=== PATIENT | male | born 1950 | race Caucasian/White ===

== ENCOUNTER → 2017-12-10 08:42 | Outpatient (CLI) | payer MEDICARE, SELFPAY ==
[2017-12-10 13:22] LABS: Absolute Neutrophil Count 4.4 X10^3/uL (2.0-7.7); Basophil# 0.03 X10^3/uL; Basophil% 0.4 % (0-1); Eosinophil# 0.39 X10^3/uL; Eosinophils% 5.5 % (0-5); Hematocrit 44.3 % (40-54); Hemoglobin 14.9 g/dl (13.0-16.5); Lymphocyte % 23.9 % (19-41); Mean Corp Hgb Conc 33.6 g/gl (32-36); Mean Corpuscular Hgb 30.3 pg (27.0-32.0); Mean Platelet Vol. 11.2 fl (6.2-12.0); Monocyte# 0.59 X10^3/uL; Monocyte% 8.3 % (0-10); Neutrophil % 61.8 % (47-70); Platelet Count 242 K/mm3 (150-450); RBC Distribution Width CV 13.6 % (11.6-14.6); RBC Distribution Width SD 43.9 fl (35.1-43.9); Red Blood Count 4.92 M/mm3 (4.6-6.2); White Blood Count 7.1 K/mm3 (4.4-11.0)
[2017-12-10 13:24] LABS: POSITIVE COUNT NO; POSITIVE DIFFERENTIAL NO; POSITIVE MORPHOLOGY NO
[2017-12-10 13:47] LABS: ALB/GLOB Ratio 1.1 RATIO (0.9-2.4); AST(SGOT) 22 U/L (15-37); Alanine Aminotransfer ALT/SGPT 39 U/L (16-61); Albumin, Serum 3.9 g/dL (3.2-5.0); Alkaline Phosphatase 130 U/L (45-117); Anion Gap 10 (5-15); BUN 14 mg/dL (7-18); BUN/Creat Ratio 17.4 RATIO (10-20); Chloride 102 mmol/L (98-107); EST Glomerular Filtration Rate 102 mL/min (>60); Est Glom Filt Rate - Afr Amer 123 mL/min (>60); Globulin 3.5 g/dL (2.2-4.2); Glucose 103 mg/dL (70-110); PSA,Total - Annual Screen 4.17 ng/mL (0.00-4.00); Potassium 4.1 mmol/L (3.5-5.1); Protein, Total 7.4 g/dL (6.4-8.2); Sodium Level 138 mmol/L (136-145); Thyroid Stim Hormone (TSH) 2.35 uIU/mL (0.358-3.74)
[2017-12-11 11:55] LABS: Hep C Antibodies <0.1 s/co ratio (0.0-0.9)
== END ==
PROVIDERS: Family Provider Family Medicine Geriatric Medicine; PCP Family Medicine Geriatric Medicine; Visit Provider Family Medicine Geriatric Medicine
DX: R53.83 Other fatigue (principal); Z12.5 Encounter for screening for malignant neoplasm of prostate; Z13.89 Encounter for screening for other disorder
CPT/HCPCS: 36415; 80053; 84153; 84443; 85025; 86803; G0103

== ENCOUNTER → 2018-02-12 08:43 | Outpatient (CLI) | payer MEDICARE, SELFPAY ==
[2018-02-12 09:46] LABS: PSA,Total- Diagnostic 3.58 ng/mL (0.0-4.0)
== END ==
PROVIDERS: Family Provider Family Medicine Geriatric Medicine; PCP Family Medicine Geriatric Medicine; Visit Provider Urology
DX: R97.20 Elevated prostate specific antigen [PSA] (principal)
CPT/HCPCS: 36415; 84153

== ENCOUNTER → 2018-06-15 11:02 | Outpatient (CLI) | payer MEDICARE, SELFPAY ==
[2018-06-15 12:48] LABS: Absolute Neutrophil Count 3.6 X10^3/uL (2.0-7.7); Basophil# 0.02 X10^3/uL; Basophil% 0.3 % (0-1); Eosinophil# 0.41 X10^3/uL; Eosinophils% 6.8 % (0-5); Hematocrit 46.6 % (40-54); Hemoglobin 15.6 g/dl (13.0-16.5); Lymphocyte % 24.8 % (19-41); Mean Corp Hgb Conc 33.5 g/gl (32-36); Mean Corpuscular Hgb 29.9 pg (27.0-32.0); Mean Corpuscular Volume 89.4 fL (80-94); Monocyte# 0.49 X10^3/uL; Monocyte% 8.1 % (0-10); Neutrophil # 3.62 X10^3/uL (2.7-7.7); POSITIVE COUNT NO; POSITIVE DIFFERENTIAL NO; POSITIVE MORPHOLOGY NO; Platelet Count 207 K/mm3 (150-450); RBC Distribution Width CV 13.3 % (11.6-14.6); RBC Distribution Width SD 43.2 fl (35.1-43.9); Red Blood Count 5.21 M/mm3 (4.6-6.2)
[2018-06-15 13:09] LABS: AST(SGOT) 19 U/L (15-37); Alanine Aminotransfer ALT/SGPT 25 U/L (16-61); Albumin, Serum 3.9 g/dL (3.2-5.0); Alkaline Phosphatase 151 U/L (45-117); Anion Gap 4 (5-15); BUN 16 mg/dL (7-18); BUN/Creat Ratio 19.4 RATIO (10-20); Calcium,Total 8.7 mg/dL (8.5-10.1); Chloride 104 mmol/L (98-107); Creatinine, Serum 0.82 mg/dL (0.70-1.30); EST Glomerular Filtration Rate 99 mL/min (>60); Est Glom Filt Rate - Afr Amer 120 mL/min (>60); Globulin 3.9 g/dL (2.2-4.2); Glucose 85 mg/dL (74-106); Potassium 4.4 mmol/L (3.5-5.1); Protein, Total 7.8 g/dL (6.4-8.2); Sodium Level 138 mmol/L (136-145); Thyroid Stim Hormone (TSH) 2.11 uIU/mL (0.358-3.74)
[2018-06-16 09:49] LABS: Vitamin D,25 Hydroxy 27.1 ng/mL (29.95-100.01)
== END ==
PROVIDERS: Family Provider Family Medicine Geriatric Medicine; PCP Family Medicine Geriatric Medicine; Visit Provider Family Medicine Geriatric Medicine
DX: E55.9 Vitamin D deficiency, unspecified (principal); R53.83 Other fatigue
CPT/HCPCS: 36415; 80053; 82306; 84443; 85025

== ENCOUNTER → 2018-09-16 07:36 | Outpatient (CLI) | payer MEDICARE, SELFPAY ==
--- NOTE | 2018-09-16 07:43 | CT_ITS ---
STUDY: LOW DOSE CT LUNG CANCER SCREENING REASON FOR EXAM: Male, 67 years old. RADIATION DOSAGE (If Supplied By Facility): CTDIvol = ( 4.02 ) mGy, DLP = ( 139.94 ) mGycm TECHNIQUE: No contrast was administered. Low dose technique was utilized (average mAS-38 and kVp 120). 1.25 mm axial source images with a slice interval of 1.25-mm were reconstructed in lung windows. 2.5 mm axial source images with a slice interval of 2.5-mm were reconstructed in lung windows. 5.0 mm axial source images with a slice interval of 5.0-mm were reconstructed in soft tissue windows. Nodule measured using lung windows on PACS and/or independent workstation with automated measurement of minimum and maximum diameter. Nodule measurement reported as average diameter rounded to the nearest whole number. Growth is defined as an increase ins size of greater than 1.5 mm. COMPARISON: None. NODULES: There is hyperinflation both lungs suggesting COPD. There is mild bronchial wall thickening suggesting chronic bronchitis. There is no demonstrated pleural abnormality. Normal heart and pericardium. Normal mediastinum. Normal hilar regions. Normal unenhanced pulmonary arteries. Normal aorta arch and descending thoracic aorta. There are multi-level degenerative changes and demineralization of the thoracic spine. Multiple old compression fractures are seen in the mid and lower thoracic spine. There is no demonstrated abnormality of the visualized upper abdomen. CT/Low Dose CT Lung Screening IMPRESSION: Lung-RADS category 2. Benign findings Recommendation: Routine screening CT scan in one year. IMPORTANT NOTES FOR USE: ACR Lung-RADS Version 1.0 Assessment Categories Release Date: March 06, 2014 Category: Coded 0-4 bases on nodule(s) with highest degree of suspicion. Negative screen is defined as categories 1 and 2; a positive screen is defined as categories 3 and 4. Category 3 and 4A nodules that are unchanged on interval CT should be coded as category 2, and individuals returned to screening in 12 months. Category 4X: Category 3 or 4 nodules with additional imaging findings that increase the suspicion of lung cancer, such as spiculation, GGN that doubles in size in 1 year, enlarged lymph notes, etc. Category Modifiers: S (significant finding unrelated to lung cancer) and C (prior history of treated lung cancer) may be added to the 0-4 Lung-RADS Electronically Signed: Greg Ott MD at 6:51 EST Tel , Service support ,
--- NOTE | 2018-09-16 07:44 | US_ITS ---
PROCEDURES: ULTRASOUND AORTA REASON FOR EXAM: Male, 67 years old. Screening TECHNIQUE: Ultrasound evaluation of the aorta was performed with real-time and static cruz-scale imaging. COMPARISON: None. FINDINGS: There is obscuration of the abdominal aorta by overlying bowel gas Aorta measures: Proximal 2.2 cm. Middle 1.8 cm. Distal 1.6 cm. Aorta measure transversely: Proximal 2.1 cm. Middle 1.8 cm. Distal 1.5 cm. Neither iliac artery visualized There is no demonstrated aneurysm.. US/Aorta IMPRESSION: Normal abdominal aorta, neither iliac artery visualized. Electronically Signed: Russell Tang MD at 18:15 EST , Service support ,
== END ==
PROVIDERS: Family Provider Family Medicine Geriatric Medicine; PCP Family Medicine Geriatric Medicine; Referring Provider Family Medicine Geriatric Medicine; Visit Provider Family Medicine Geriatric Medicine
DX: I71.4 Abdominal aortic aneurysm, without rupture (principal); Z87.891 Personal history of nicotine dependence; Z12.2 Encounter for screening for malignant neoplasm of respiratory organs
CPT/HCPCS: 76775; G0297

== ENCOUNTER → 2018-12-15 14:32 | Outpatient (CLI) | payer MEDICARE, SELFPAY ==
[2018-12-15 16:54] LABS: Absolute Lymphocyte Count 1.58 X10^3/ul (0.83-4.51); Absolute Neutrophil Count 2.9 X10^3/uL (2.0-7.7); Basophil# 0.05 X10^3/uL; Basophil% 0.9 % (0-1); Eosinophil# 0.42 X10^3/uL; Eosinophils% 7.7 % (0-5); Hematocrit 49.4 % (40-54); Lymphocyte # 1.58 X10^3/ul (4.0); Lymphocyte % 28.9 % (19-41); Mean Corp Hgb Conc 32.4 g/gl (32-36); Mean Corpuscular Hgb 29.7 pg (27.0-32.0); Mean Corpuscular Volume 91.8 fL (80-94); Monocyte# 0.47 X10^3/uL; Monocyte% 8.6 % (0-10); Neutrophil # 2.94 X10^3/uL (2.7-7.7); Neutrophil % 53.7 % (47-70); Platelet Count 216 K/mm3 (150-450); RBC Distribution Width CV 13.5 % (11.6-14.6); RBC Distribution Width SD 44.7 fl (35.1-43.9); Red Blood Count 5.38 M/mm3 (4.6-6.2); Vitamin D,25 Hydroxy 23.5 ng/mL (29.95-100.01); White Blood Count 5.5 K/mm3 (4.4-11.0)
[2018-12-15 16:56] LABS: POSITIVE COUNT NO; POSITIVE DIFFERENTIAL NO; POSITIVE MORPHOLOGY NO
[2018-12-15 16:57] LABS: ALB/GLOB Ratio 1.2 RATIO (0.9-2.4); AST(SGOT) 16 U/L (15-37); Alanine Aminotransfer ALT/SGPT 27 U/L (16-61); Alkaline Phosphatase 119 U/L (45-117); Anion Gap 9 (5-15); BUN 15 mg/dL (7-18); Calcium,Total 8.9 mg/dL (8.5-10.1); Chloride 103 mmol/L (98-107); Creatinine, Serum 0.88 mg/dL (0.70-1.30); EST Glomerular Filtration Rate 92 mL/min (>60); Est Glom Filt Rate - Afr Amer 111 mL/min (>60); Globulin 3.4 g/dL (2.2-4.2); Glucose 90 mg/dL (74-106); Potassium 4.4 mmol/L (3.5-5.1); Protein, Total 7.4 g/dL (6.4-8.2); Sodium Level 140 mmol/L (136-145)
== END ==
PROVIDERS: Family Provider Family Medicine Geriatric Medicine; PCP Family Medicine Geriatric Medicine; Visit Provider Family Medicine Geriatric Medicine
DX: E55.9 Vitamin D deficiency, unspecified (principal); R53.83 Other fatigue; Z12.5 Encounter for screening for malignant neoplasm of prostate
CPT/HCPCS: 36415; 80053; 82306; 84153; 84443; 85025; G0103

== ENCOUNTER → 2019-06-15 08:53 | Outpatient (CLI) | payer MEDICARE, SELFPAY ==
[2019-06-15 10:38] LABS: Absolute Lymphocyte Count 1.18 X10^3/uL (0.83-4.51); Absolute Neutrophil Count 3.2 X10^3/uL (2.0-7.7); Basophil# 0.04 X10^3/uL; Basophil% 0.8 % (0-1); Eosinophils% 5.8 % (0-5); Hematocrit 47.7 % (40-54); Hemoglobin 15.5 g/dL (13.0-16.5); Lymphocyte # 1.18 X10^3/ul (4.0); Mean Corp Hgb Conc 32.5 g/dL (32-36); Mean Corpuscular Hgb 29.4 pg (27.0-32.0); Mean Corpuscular Volume 90.3 fL (80-94); Mean Platelet Vol. 10.8 fl (6.2-12.0); Monocyte% 7.8 % (0-10); NRBC Flagged by Analyzer 0 % (0-5); Neutrophil # 3.18 X10^3/uL (2.7-7.7); Platelet Count 188 K/mm3 (150-450); RBC Distribution Width CV 13.1 % (11.6-14.6); Red Blood Count 5.28 M/mm3 (4.6-6.2); White Blood Count 5.1 K/mm3 (4.4-11.0)
[2019-06-15 11:21] LABS: ALB/GLOB Ratio 1.2 RATIO (0.9-2.4); AST(SGOT) 17 U/L (15-37); Alanine Aminotransfer ALT/SGPT 21 U/L (16-61); Albumin, Serum 3.9 g/dL (3.2-5.0); Alkaline Phosphatase 137 U/L (45-117); Anion Gap 4 (5-15); BUN 13 mg/dL (7-18); BUN/Creat Ratio 17.7 RATIO (10-20); Calcium,Total 8.7 mg/dL (8.5-10.1); Chloride 105 mmol/L (98-107); Creatinine, Serum 0.73 mg/dL (0.70-1.30); EST Glomerular Filtration Rate 113 mL/min (>60); Est Glom Filt Rate - Afr Amer 137 mL/min (>60); Globulin 3.3 g/dL (2.2-4.2); Glucose 89 mg/dL (74-106); Potassium 4.2 mmol/L (3.5-5.1); Protein, Total 7.2 g/dL (6.4-8.2); Sodium Level 139 mmol/L (136-145); Thyroid Stim Hormone (TSH) 2.97 uIU/mL (0.358-3.74)
== END ==
PROVIDERS: Family Provider Family Medicine Geriatric Medicine; PCP Family Medicine Geriatric Medicine; Visit Provider Family Medicine Geriatric Medicine
DX: E55.9 Vitamin D deficiency, unspecified (principal); R53.83 Other fatigue
CPT/HCPCS: 36415; 80053; 82306; 84443; 85025

== ENCOUNTER → 2019-11-03 10:31 | Outpatient (CLI) | payer MEDICARE, SELFPAY ==
[2019-11-03 12:05] LABS: Erythrocyte Sedimentation Rate 8 mm/hr (0-20)
[2019-11-03 12:07] LABS: Absolute Lymphocyte Count 1.14 X10^3/uL (0.83-4.51); Absolute Neutrophil Count 4.4 X10^3/uL (2.0-7.7); Basophil# 0.04 X10^3/uL; Basophil% 0.6 % (0-1); Eosinophil# 0.32 X10^3/uL; Hematocrit 46.5 % (40-54); Hemoglobin 15.8 g/dL (13.0-16.5); Lymphocyte # 1.14 X10^3/ul (4.0); Lymphocyte % 17.9 % (19-41); Mean Corpuscular Hgb 30.4 pg (27.0-32.0); Mean Corpuscular Volume 89.6 fL (80-94); Mean Platelet Vol. 10.6 fl (6.2-12.0); Monocyte# 0.43 X10^3/uL; Monocyte% 6.8 % (0-10); NRBC Flagged by Analyzer 0 % (0-5); Neutrophil % 69.2 % (47-70); Platelet Count 211 K/mm3 (150-450); RBC Distribution Width CV 12.7 % (11.6-14.6); RBC Distribution Width SD 41.8 fl (35.1-43.9); Red Blood Count 5.19 M/mm3 (4.6-6.2); White Blood Count 6.4 K/mm3 (4.4-11.0)
[2019-11-03 13:21] LABS: Albumin, Serum 3.8 g/dL (3.2-5.0); Anion Gap 5 (5-15); BUN 13 mg/dL (7-18); BUN/Creat Ratio 17.3 RATIO (10-20); CRP < 2.90 mg/L (0.0-3.0); Calcium,Total 8.7 mg/dL (8.5-10.1); Chloride 103 mmol/L (98-107); Creatinine, Serum 0.75 mg/dL (0.70-1.30); EST Glomerular Filtration Rate 110 mL/min (>60); Est Glom Filt Rate - Afr Amer 133 mL/min (>60); Glucose 93 mg/dL (74-106); Sodium Level 139 mmol/L (136-145)
== END ==
PROVIDERS: Family Provider Family Medicine Geriatric Medicine; PCP Family Medicine Geriatric Medicine; Referring Provider Specialist; Visit Provider Specialist
DX: Z01.812 Encounter for preprocedural laboratory examination (principal)
CPT/HCPCS: 36415; 80048; 82040; 85025; 85652; 86140

== ENCOUNTER → 2019-12-08 | Outpatient (CLI) | payer MEDICARE, SELFPAY ==
[2019-12-08 13:43] LABS: Absolute Lymphocyte Count 1.36 X10^3/uL (0.83-4.51); Absolute Neutrophil Count 3.6 X10^3/uL (2.0-7.7); Basophil# 0.05 X10^3/uL; Basophil% 0.8 % (0-1); Eosinophil# 0.36 X10^3/uL; Eosinophils% 6.1 % (0-5); Hematocrit 43.3 % (40-54); Hemoglobin 13.8 g/dL (13.0-16.5); Lymphocyte # 1.36 X10^3/ul (4.0); Lymphocyte % 22.9 % (19-41); Mean Corp Hgb Conc 31.9 g/dL (32-36); Mean Corpuscular Hgb 29.4 pg (27.0-32.0); Mean Corpuscular Volume 92.1 fL (80-94); Mean Platelet Vol. 10.2 fl (6.2-12.0); Monocyte# 0.56 X10^3/uL; Monocyte% 9.4 % (0-10); NRBC Flagged by Analyzer 0 % (0-5); Neutrophil # 3.59 X10^3/uL (2.7-7.7); Neutrophil % 60.6 % (47-70); Platelet Count 277 K/mm3 (150-450); RBC Distribution Width CV 13.3 % (11.6-14.6); RBC Distribution Width SD 45.3 fl (35.1-43.9); White Blood Count 5.9 K/mm3 (4.4-11.0)
[2019-12-08 13:53] LABS: Erythrocyte Sedimentation Rate 6 mm/hr (0-20)
[2019-12-08 14:03] LABS: CRP 9.56 mg/L (0.0-3.0)
== END | disposition home or self-care (01) ==
LOC: LAB 12:30
PROVIDERS: PCP Family Medicine Geriatric Medicine; Referring Provider Specialist; Visit Provider Specialist
DX: T84.84XD Pain due to internal orthopedic prosthetic devices, implants and grafts, subsequent encounter (principal)
CPT/HCPCS: 36415; 85025; 85652; 86140

== ENCOUNTER → 2019-12-16 | Outpatient (CLI) | payer MEDICARE, SELFPAY ==
[2019-12-16 12:39] LABS: Absolute Lymphocyte Count 0.98 X10^3/uL (0.83-4.51); Absolute Neutrophil Count 3.1 X10^3/uL (2.0-7.7); Basophil# 0.04 X10^3/uL; Basophil% 0.8 % (0-1); Eosinophils% 6.1 % (0-5); Lymphocyte # 0.98 X10^3/ul (4.0); Lymphocyte % 19.8 % (19-41); Mean Corp Hgb Conc 32.6 g/dL (32-36); Mean Corpuscular Volume 92.3 fL (80-94); Mean Platelet Vol. 10.7 fl (6.2-12.0); Monocyte# 0.48 X10^3/uL; Monocyte% 9.7 % (0-10); NRBC Flagged by Analyzer 0 % (0-5); Neutrophil # 3.14 X10^3/uL (2.7-7.7); Neutrophil % 63.4 % (47-70); Platelet Count 239 K/mm3 (150-450); RBC Distribution Width CV 13.2 % (11.6-14.6); RBC Distribution Width SD 44.4 fl (35.1-43.9); Red Blood Count 4.66 M/mm3 (4.6-6.2)
[2019-12-16 12:51] LABS: Vitamin D,25 Hydroxy 18.5 ng/mL (29.95-100.01)
[2019-12-16 13:00] LABS: ALB/GLOB Ratio 1.1 RATIO (0.9-2.4); AST(SGOT) 14 U/L (15-37); Alanine Aminotransfer ALT/SGPT 21 U/L (16-61); Albumin, Serum 3.9 g/dL (3.2-5.0); Alkaline Phosphatase 140 U/L (45-117); Anion Gap 4 (5-15); BUN 17 mg/dL (7-18); BUN/Creat Ratio 19.7 RATIO (10-20); Calcium,Total 8.8 mg/dL (8.5-10.1); Chloride 105 mmol/L (98-107); Creatinine, Serum 0.86 mg/dL (0.70-1.30); EST Glomerular Filtration Rate 93 mL/min (>60); Est Glom Filt Rate - Afr Amer 113 mL/min (>60); Globulin 3.5 g/dL (2.2-4.2); Glucose 91 mg/dL (74-106); PSA,Total - Annual Screen 4.33 ng/mL (0.00-4.00); Potassium 4.6 mmol/L (3.5-5.1); Protein, Total 7.4 g/dL (6.4-8.2); Sodium Level 138 mmol/L (136-145)
== END | disposition home or self-care (01) ==
LOC: POLAB3 09:08
PROVIDERS: PCP Family Medicine Geriatric Medicine; Visit Provider Family Medicine Geriatric Medicine
DX: E55.9 Vitamin D deficiency, unspecified (principal); R53.83 Other fatigue; Z12.5 Encounter for screening for malignant neoplasm of prostate
CPT/HCPCS: 36415; 80053; 82306; 84153; 84443; 85025; G0103

== ENCOUNTER → 2020-06-15 08:42 | Outpatient (CLI) | payer MEDICARE, SELFPAY ==
[2020-06-15 10:52] LABS: Absolute Lymphocyte Count 1.17 X10^3/uL (0.83-4.51); Absolute Neutrophil Count 3.2 X10^3/uL (2.0-7.7); Basophil# 0.02 X10^3/uL; Basophil% 0.4 % (0-1); Eosinophil# 0.31 X10^3/uL; Hematocrit 46.3 % (40-54); Hemoglobin 15.2 g/dL (13.0-16.5); Lymphocyte # 1.17 X10^3/ul (4.0); Lymphocyte % 22.5 % (19-41); Mean Corp Hgb Conc 32.8 g/dL (32-36); Mean Corpuscular Volume 91.3 fL (80-94); Mean Platelet Vol. 11.2 fl (6.2-12.0); Monocyte# 0.47 X10^3/uL; NRBC Flagged by Analyzer 0 % (0-5); Neutrophil # 3.23 X10^3/uL (2.7-7.7); Neutrophil % 61.9 % (47-70); Platelet Count 199 K/mm3 (150-450); RBC Distribution Width CV 13.2 % (11.6-14.6); RBC Distribution Width SD 44.4 fl (35.1-43.9); Red Blood Count 5.07 M/mm3 (4.6-6.2); White Blood Count 5.2 K/mm3 (4.4-11.0)
[2020-06-15 11:18] LABS: ALB/GLOB Ratio 1.2 RATIO (0.9-2.4); AST(SGOT) 19 U/L (15-37); Alanine Aminotransfer ALT/SGPT 21 U/L (16-61); Alkaline Phosphatase 134 U/L (45-117); Anion Gap 3 (5-15); BUN 17 mg/dL (7-18); BUN/Creat Ratio 19.7 RATIO (10-20); Calcium,Total 8.8 mg/dL (8.5-10.1); Chloride 108 mmol/L (98-107); Creatinine, Serum 0.86 mg/dL (0.70-1.30); EST Glomerular Filtration Rate 93 mL/min (>60); Est Glom Filt Rate - Afr Amer 113 mL/min (>60); Globulin 3.2 g/dL (2.2-4.2); Glucose 104 mg/dL (74-106); Potassium 4.2 mmol/L (3.5-5.1); Protein, Total 7.2 g/dL (6.4-8.2); Sodium Level 142 mmol/L (136-145); Thyroid Stim Hormone (TSH) 2.49 uIU/mL (0.358-3.74)
== END ==
PROVIDERS: PCP Family Medicine Geriatric Medicine; Visit Provider Family Medicine Geriatric Medicine
DX: E55.9 Vitamin D deficiency, unspecified (principal); R53.83 Other fatigue
CPT/HCPCS: 36415; 80053; 82306; 84443; 85025

== ENCOUNTER → 2020-12-21 08:53 | Outpatient (CLI) | payer MEDICARE, SELFPAY ==
[2020-12-21 13:05] LABS: Absolute Lymphocyte Count 1.17 X10^3/uL (0.83-4.51); Absolute Neutrophil Count 3.5 X10^3/uL (2.0-7.7); Basophil# 0.03 X10^3/uL; Basophil% 0.6 % (0-1); Eosinophils% 5.5 % (0-5); Hematocrit 51.1 % (40-54); Hemoglobin 16.5 g/dL (13.0-16.5); Lymphocyte # 1.17 X10^3/ul (4.0); Lymphocyte % 21.5 % (19-41); Mean Corp Hgb Conc 32.3 g/dL (32-36); Mean Corpuscular Hgb 29.6 pg (27.0-32.0); Mean Corpuscular Volume 91.7 fL (80-94); Monocyte# 0.46 X10^3/uL; Monocyte% 8.5 % (0-10); NRBC Flagged by Analyzer 0 % (0-5); Neutrophil # 3.46 X10^3/uL (2.7-7.7); Neutrophil % 63.7 % (47-70); Platelet Count 202 K/mm3 (150-450); RBC Distribution Width CV 13.1 % (11.6-14.6); RBC Distribution Width SD 43.9 fl (35.1-43.9); Red Blood Count 5.57 M/mm3 (4.6-6.2); White Blood Count 5.4 K/mm3 (4.4-11.0)
[2020-12-21 13:34] LABS: ALB/GLOB Ratio 1.1 RATIO (0.9-2.4); AST(SGOT) 31 U/L (15-37); Alanine Aminotransfer ALT/SGPT 38 U/L (16-61); Albumin, Serum 4.1 g/dL (3.2-5.0); Alkaline Phosphatase 143 U/L (45-117); Anion Gap 6 (5-15); BUN 14 mg/dL (7-18); BUN/Creat Ratio 15.5 RATIO (10-20); Calcium,Total 9.1 mg/dL (8.5-10.1); Chloride 103 mmol/L (98-107); EST Glomerular Filtration Rate 88 mL/min (>60); Est Glom Filt Rate - Afr Amer 107 mL/min (>60); Globulin 3.6 g/dL (2.2-4.2); Glucose 107 mg/dL (74-106); Potassium 4.9 mmol/L (3.5-5.1); Protein, Total 7.7 g/dL (6.4-8.2); Sodium Level 137 mmol/L (136-145); Thyroid Stim Hormone (TSH) 2.42 uIU/mL (0.358-3.74)
[2020-12-21 14:33] LABS: Vitamin D,25 Hydroxy 16.1 ng/mL
== END ==
PROVIDERS: PCP Family Medicine Geriatric Medicine; Visit Provider Family Medicine Geriatric Medicine
DX: E55.9 Vitamin D deficiency, unspecified (principal); R53.83 Other fatigue; Z12.5 Encounter for screening for malignant neoplasm of prostate
CPT/HCPCS: 36415; 80053; 82306; 84153; 84443; 85025; G0103

== ENCOUNTER → 2021-06-13 09:20 | Outpatient (CLI) | payer MEDICARE, SELFPAY ==
[2021-06-13 11:07] LABS: Absolute Lymphocyte Count 1.31 X10^3/uL (0.83-4.51); Basophil# 0.05 X10^3/uL; Basophil% 0.8 % (0-1); Eosinophil# 0.24 X10^3/uL; Hematocrit 48.3 % (40-54); Lymphocyte # 1.31 X10^3/ul (0.83-4.51); Lymphocyte % 21.6 % (19-41); Mean Corp Hgb Conc 33.1 g/dL (32-36); Mean Corpuscular Hgb 29.7 pg (27.0-32.0); Mean Corpuscular Volume 89.8 fL (80-94); Mean Platelet Vol. 10.6 fl (6.2-12.0); Monocyte# 0.46 X10^3/uL; Monocyte% 7.6 % (0-10); NRBC Flagged by Analyzer 0 % (0-5); Neutrophil # 3.98 X10^3/uL (2.7-7.7); Neutrophil % 65.7 % (47-70); Platelet Count 228 K/mm3 (150-450); RBC Distribution Width SD 42.5 fl (35.1-43.9); Red Blood Count 5.38 M/mm3 (4.6-6.2); White Blood Count 6.1 K/mm3 (4.4-11.0)
[2021-06-13 11:19] LABS: Vitamin D,25 Hydroxy 25.8 ng/mL
[2021-06-13 11:25] LABS: ALB/GLOB Ratio 1.1 RATIO (0.9-2.4); AST(SGOT) 16 U/L (15-37); Alanine Aminotransfer ALT/SGPT 27 U/L (16-61); Albumin, Serum 3.9 g/dL (3.2-5.0); Alkaline Phosphatase 133 U/L (45-117); Anion Gap 7 (5-15); BUN 10 mg/dL (7-18); BUN/Creat Ratio 11.9 RATIO (10-20); Calcium,Total 8.8 mg/dL (8.5-10.1); Chloride 104 mmol/L (98-107); Creatinine, Serum 0.84 mg/dL (0.70-1.30); EST Glomerular Filtration Rate 96 mL/min (>60); Est Glom Filt Rate - Afr Amer 116 mL/min (>60); Globulin 3.5 g/dL (2.2-4.2); Glucose 93 mg/dL (74-106); Potassium 4.1 mmol/L (3.5-5.1); Protein, Total 7.4 g/dL (6.4-8.2); Sodium Level 137 mmol/L (136-145); Thyroid Stim Hormone (TSH) 2.16 uIU/mL (0.358-3.74)
== END ==
PROVIDERS: PCP Family Medicine Geriatric Medicine; Visit Provider Family Medicine Geriatric Medicine
DX: E55.9 Vitamin D deficiency, unspecified (principal); R53.83 Other fatigue
CPT/HCPCS: 36415; 80053; 82306; 84443; 85025

== ENCOUNTER 2022-01-16 11:29 | Outpatient (CLI) | payer MEDICARE, SELFPAY ==
[2022-01-16 12:40] LABS: Absolute Neutrophil Count 3.4 X10^3/uL (2.0-7.7); Basophil# 0.04 X10^3/uL; Basophil% 0.7 % (0-1); Eosinophil# 0.29 X10^3/uL; Eosinophils% 5.4 % (0-5); Hematocrit 46.4 % (40-54); Hemoglobin 15.5 g/dL (13.0-16.5); Lymphocyte % 22.2 % (19-41); Mean Corp Hgb Conc 33.4 g/dL (32-36); Mean Corpuscular Hgb 30.2 pg (27.0-32.0); Mean Corpuscular Volume 90.3 fL (80-94); Mean Platelet Vol. 10.7 fl (6.2-12.0); Monocyte% 9.3 % (0-10); NRBC Flagged by Analyzer 0 % (0-5); Neutrophil # 3.36 X10^3/uL (2.7-7.7); Neutrophil % 62.2 % (47-70); Platelet Count 217 K/mm3 (150-450); RBC Distribution Width SD 42.9 fl (35.1-43.9); Red Blood Count 5.14 M/mm3 (4.6-6.2); White Blood Count 5.4 K/mm3 (4.4-11.0)
[2022-01-16 13:00] LABS: Vitamin D,25 Hydroxy 16.3 ng/mL
[2022-01-16 13:16] LABS: ALB/GLOB Ratio 1.1 RATIO (0.9-2.4); AST(SGOT) 22 U/L (15-37); Alanine Aminotransfer ALT/SGPT 27 U/L (16-61); Albumin, Serum 3.7 g/dL (3.2-5.0); Alkaline Phosphatase 129 U/L (45-117); Anion Gap 3 (5-15); BUN 15 mg/dL (7-18); BUN/Creat Ratio 17.6 RATIO (10-20); Calcium,Total 8.8 mg/dL (8.5-10.1); Chloride 103 mmol/L (98-107); Creatinine, Serum 0.85 mg/dL (0.70-1.30); EST Glomerular Filtration Rate 95 mL/min (>60); Est Glom Filt Rate - Afr Amer 115 mL/min (>60); Globulin 3.4 g/dL (2.2-4.2); Glucose 99 mg/dL (74-106); PSA,Total - Annual Screen 3.68 ng/mL (0.00-4.00); Potassium 4.4 mmol/L (3.5-5.1); Protein, Total 7.1 g/dL (6.4-8.2); Sodium Level 136 mmol/L (136-145); Thyroid Stim Hormone (TSH) 2.56 uIU/mL (0.358-3.74)
== END 2022-01-16 23:59 | disposition home or self-care (01) ==
LOC: POLAB3 11:31
PROVIDERS: PCP Family Medicine Geriatric Medicine; Visit Provider Family Medicine Geriatric Medicine
DX: Z12.5 Encounter for screening for malignant neoplasm of prostate (principal); R53.83 Other fatigue; E55.9 Vitamin D deficiency, unspecified
CPT/HCPCS: 36415; 80053; 82306; 84153; 84443; 85025; G0103

== ENCOUNTER 2022-01-23 09:48 | Outpatient (CLI) | payer MEDICARE, SELFPAY ==
--- NOTE | 2022-01-23 13:21 | PFTCOMP ---
COMPLETE PULMONARY FUNCTION TEST INTERPRETATION Brief HPI: Patient is a 71 year old male, currently under the care of Dr. Hernandez, who presents to [facility] for complete pulmonary function tests secondary to diagnosis of dyspnea. Respiratory therapist reports good effort and reproducible results. Interpretation: Forced expiration spirometry shows a mild large airways obstructive ventilatory defect with an FEV1 of 77% predicted. There is no significant bronchodilator response by strict ATS criteria. Spirograms are of good quality and plateau slowly, indicating slowly emptying areas of the lungs. The respiratory flow volume loop shows decreased expiratory flow rates at high lung volumes consistent with small airways obstruction. Lung volumes by body plethysmography show a normal total lung capacity at 6.48 L, 90% predicted. All other lung volumes are within normal limits. Diffusion capacity by carbon monoxide is at the lower limit of normal at 75% predicted. The airway resistance is elevated. No previous pulmonary function tests were available for review. Impression: Irreversible mild large airways obstructive ventilatory defect with a symmetric reduction diffusion capacity
== END 2022-01-23 23:59 | disposition home or self-care (01) ==
LOC: PSN 09:48
PROVIDERS: PCP Family Medicine Geriatric Medicine; Referring Provider Family Medicine Geriatric Medicine; Visit Provider Family Medicine Geriatric Medicine
DX: R06.02 Shortness of breath (principal)
CPT/HCPCS: 94060; 94726; 94729

== ENCOUNTER 2022-02-20 11:11 | Outpatient (CLI) | payer MEDICARE, SELFPAY ==
--- NOTE | 2022-02-20 11:13 | RAD_ITS ---
STUDY: X-RAY - RIGHT FOOT CLINICAL: Male, 71 years old. Right foot pain. TECHNIQUE: 3 view(s) of the foot. COMPARISON: None. FINDINGS: Inferior calcaneal spur. Mild arthrosis of the tibiotalar joint. Mild arthrosis of the subtalar joint. Mild arthrosis of the midfoot. Mild arthrosis of the MTP and IP joints with hammertoe deformities. The soft tissue structures are unremarkable. RAD/Foot min 3 Views IMPRESSION: Osteopenia with calcaneal spur and osteoarthritic changes as described. No acute abnormality, chondrocalcinosis, erosive changes or periostitis. Electronically Signed: Ryne Munson MD at 12:43 EDT ,
== END 2022-02-20 23:59 | disposition home or self-care (01) ==
LOC: RAD 11:13
PROVIDERS: PCP Family Medicine Geriatric Medicine; Referring Provider Family Medicine Geriatric Medicine; Visit Provider Family Medicine Geriatric Medicine
DX: M79.671 Pain in right foot (principal)
CPT/HCPCS: 73630

== ENCOUNTER 2022-04-09 06:27 | Day surgery (SDC) | payer MEDICARE, SELFPAY ==
[2022-04-09] VITALS (7 sets, daily range): BP systolic 100–132; BP diastolic 66–92; PULSE 59–71; RESP 16; TEMP 36.1–36.6; O2SAT 92–96; BMI 32.2
--- NOTE | 2022-04-09 07:30 | COLBX_PTH ---
PATIENT: CHAPITO TRAORE LOC: EN U#:[id number] AGE/SX: 71/M ROOM: RE04/09/[address]: Dr. Hero Hodges DO : 1950 BED: DIS: 04/09/2022 SPEC #: [id number] RECD: 04/09/22 12:56 STATUS: IRMA CRISTHIAN #: [id number] FROYLAN: 04/09/22 07:[address]: Hero Hodges DEPT: SURGICAL PATHOLOGY RECD BY: Agueda Shelton ENTERED: 04/09/22 14:00 SP TYPE: COLON BX OTHR DR: Dr. Arslan Hernandez MD Tissues: A - Sigmoid colon biopsy B - Descending colon C - Cecum, NOS D - COLON BIOPSY E - Transverse colon F - SPLENIC FLEXURE G - Descending colon Procedures: Surgery Specimen Level IV HEADER OPERATION: Colonoscopy with biopsy and polypectomy ? open access (MAC) PRE-OP DIAGNOSIS: Screening TISSUE SUBMITTED: A ? Sigmoid polyp, B ? Descending colon polyp, C ? Cecum biopsy, D ? Hepatic flexure polyp, E ? Transverse colon polyp, F ? Splenic flexure polyp, G ? Descending colon polyp MICROSCOPIC DIAGNOSIS A. Sigmoid colon polyp, biopsy: Hyperplastic polyp. B. Descending colon polyp, biopsy: Tubular adenoma. C. Cecum, biopsy: Focal crypt abscess. See comment. D. Colonic polyp at hepatic flexure, biopsy: Colonic mucosa with hyperplastic change. E. Transverse colon polyp, biopsy: Tubular adenoma. F. Colonic polyp at splenic flexure, biopsy: Chronic mucosa with focal hyperplastic change. G. Descending colon polyp, biopsy: Fragments of hyperplastic polyp. Fragments of tubular adenoma. AM:theodore 04/10/2022 COMMENT C. A single crypt abscess is identified. The significance of this is unclear. Clinical correlation is suggested. MICROSCOPIC DESCRIPTION Slides are reviewed. GROSS DESCRIPTION A - Received in fixative is one container labeled with the patient's name and designated sigmoid polyp biopsy. The specimen consists of one irregular fragment of light rowan soft tissue that measures 0.5 x 0.3 x 0.1 cm. The specimen is totally submitted in one cassette. B - Received in fixative is one container labeled with the patient's name and designated descending colon polyp. The specimen consists of one irregular fragment of light rowan soft tissue that measures 0.5 x 0.5 x 0. cm. The specimen is totally submitted in one cassette. C - Received in fixative is one container labeled with the patient's name and designated cecum biopsy. The specimen consists of two irregular fragments of light rowan soft tissue that in aggregate measure 0.7 x 0.2 x 0.1 cm. The specimen is totally submitted in one cassette. D - Received in fixative is one container labeled with the patient's name and designated hepatic flexure polyp. The specimen consists of one irregular fragment of light rowan soft tissue that measures 0.6 x 0.3 x 0.1 cm. The specimen is totally submitted in one cassette. E - Received in fixative is one container labeled with the patient's name and designated transverse colon polyp. The specimen consists of one irregular fragment of light rowan soft tissue that measures 0.3 x 0.2 x 0.1 cm. The specimen is totally submitted in one cassette. F - Received in fixative is one container labeled with the patient's name and designated splenic flexure polyp biopsy. The specimen consists of one irregular fragment of light rowan soft tissue that measures 0.7 x 0.2 x 0.1 cm. The specimen is totally submitted in one cassette. G - Received in fixative is one container labeled with the patient's name and designated descending colon polyp. The specimen consists of multiple irregular fragments of light rowan soft tissue that in aggregate measure 2.2 x 1 x 0.1 cm. The specimen is totally submitted in one cassette. / AM:theodore 04/09/2022 TC:5 CPT: 17980 x7
--- NOTE | 2022-04-09 07:35 | PCM.HP.BLA ---
History and Physical Date of Admission: 04/09/22 Grabiel is a very pleasant 71-year-old gentleman with past medical history of mild anxiety, asthma, hypercholesterolemia who arrives here for screening colonoscopy. He has had a colonoscopy in the past approximately 2 years ago. He has no personal history of polyps. He is not have any abdominal pain. He is not have any chest pain or shortness of breath. He is not having any nausea. He is not have any bloating. He did take the prep however it did not work as effectively so he is getting tap water enemas at this time. Past medical history-hyperlipidemia, asthma, anxiety Past surgical history-ganglion cyst removal, colonoscopy Allergies-no known drug allergies Medications-as per MAR Social history-negative alcohol and drugs Family history-negative for GI malignancy or GI disease Physical examination-blood pressure is 132/92, pulse is 71, respiratory to 16, temperature is 97.9, satting 96% on room air Generally no acute distress HEENT normocephalic atraumatic Respiratory clear to auscultation bilaterally Cardiovascular-no murmurs rubs or gallops Abdomen-soft nontender nondistended all 4 quadrants Extremities-no clubbing cyanosis or edema Assessment and plan 71-year-old gentleman comes in for screening colonoscopy. He was explained alternatives, risk, benefits including not withstanding bleeding, infection, sepsis, perforation, need for emergency to . He will have an ASA of 2.
[2022-04-09] MEDS: Lactated Ringers 1,000 ML 15 ML IV (07:45)
--- NOTE | 2022-04-09 08:39 | OP.COLON_ITS ---
Patient Name: Grabiel Beckwith Procedure Date: 04/09/2022 7:35 AM Date of : 1950 Age: 71 Procedure: Colonoscopy Indications: Screening for colorectal malignant neoplasm Providers: Hero Hodges DO Medicines: Monitored Anesthesia Care Patient Profile: This is a 71 year old male. Refer to note in patient chart for documentation of history and physical. Last Colonoscopy: date unknown. Unable to locate last colonoscopy report. Complications: No immediate complications. Procedure: Pre-Anesthesia Assessment: - Prior to the procedure, a History and Physical was performed, and patient medications and allergies were reviewed. The risks and benefits of the procedure and the sedation options and risks were discussed with the patient. All questions were answered and informed consent was obtained. Patient identification and proposed procedure were verified by the physician in the pre-procedure area. Mental Status Examination: alert and oriented. Airway Examination: normal oropharyngeal airway and neck mobility. Respiratory Examination: clear to auscultation. CV Examination: normal. Prophylactic Antibiotics: The patient does not require prophylactic antibiotics. Prior Anticoagulants: The patient has taken no previous anticoagulant or antiplatelet agents. ASA Grade Assessment: II - A patient with mild systemic disease. After reviewing the risks and benefits, the patient was deemed in satisfactory condition to undergo the procedure. The anesthesia plan was to use moderate sedation / analgesia (conscious sedation). Immediately prior to administration of medications, the patient was re-assessed for adequacy to receive sedatives. The heart rate, respiratory rate, oxygen saturations, blood pressure, adequacy of pulmonary ventilation, and response to care were monitored throughout the procedure. The physical status of the patient was re-assessed after the procedure. After I obtained informed consent, the scope was passed under direct vision. Throughout the procedure, the patient's blood pressure, pulse, and oxygen saturations were monitored continuously. The colonoscope was introduced through the anus and advanced to the cecum, identified by appendiceal orifice and ileocecal valve. The colonoscopy was performed without difficulty. The patient tolerated the procedure well. The quality of the bowel preparation was good. The quality of the bowel preparation was fair. Scope In: 7:47:28 AM Scope Withdrawal Time 0 hours 27 minutes 49 seconds Scope Out: 8:31:02 AM Total Procedure Duration Time 0 hours 43 minutes 34 seconds Findings: The perianal and digital rectal examinations were normal. A few small-mouthed diverticula were found in the sigmoid colon. A 20 mm polyp was found in the descending colon. The polyp was sessile. The polyp was removed with a hot snare. Resection and retrieval were complete. Verification of patient identification for the specimen was done. Estimated blood loss was minimal. Five sessile polyps were found in the splenic flexure, transverse colon, hepatic flexure and ascending colon. The polyps were 1 to 2 mm in size. These polyps were removed with a cold biopsy forceps. Resection and retrieval were complete. Verification of patient identification for the specimen was done. Estimated blood loss was minimal. An area of moderately congested mucosa was found in the cecum. Biopsies were taken with a cold forceps for histology. Verification of patient identification for the specimen was done. Estimated blood loss was minimal. Impression: - Preparation of the colon was fair. - Diverticulosis in the sigmoid colon. - One 20 mm polyp in the descending colon, removed with a hot snare. Resected and retrieved. - Five 1 to 2 mm polyps at the splenic flexure, in the transverse colon, at the hepatic flexure and in the ascending colon, removed with a cold biopsy forceps. Resected and retrieved. - Congested mucosa in the cecum. Biopsied. Recommendation: - Discharge patient to home. - Resume previous diet. - Continue present medications. - Await pathology results. - Repeat colonoscopy in 1 year for surveillance of multiple polyps. Procedure Code(s): --- Professional --- 45847, Colonoscopy, flexible; with removal of tumor(s), polyp(s), or other lesion(s) by snare technique 03058, 59, Colonoscopy, flexible; with biopsy, single or multiple CPT copyright 2017 [employer]. All rights reserved. The codes documented in this report are preliminary and upon microfiche camera operator review may be revised to meet current compliance requirements. Hero Hodges DO 04/09/2022 8:38:40 AM This report has been signed electronically. Number of Addenda: 1 Note Initiated On: 04/09/2022 7:35 AM Addendum Number: 1 Addendum Date: 08/12/2022 6:33:22 AM MAC was used as sedation for this procedure. Hero Hodges DO 08/12/2022 6:33:27 AM This report has been signed electronically.
--- NOTE | 2022-04-09 08:39 | OP.CCLET_ITS ---
08/12/2022 Arslan Hernandez MD [address] [place] [address] Re : Colonoscopy procedure for Grabiel Beckwith Dear Dr. Hernandez This procedure was performed on Saturday, April 09, 2022. My impressions and recommendations are as follows: Impressions : - Preparation of the colon was fair. - Diverticulosis in the sigmoid colon. - One 20 mm polyp in the descending colon, removed with a hot snare. Resected and retrieved. - Five 1 to 2 mm polyps at the splenic flexure, in the transverse colon, at the hepatic flexure and in the ascending colon, removed with a cold biopsy forceps. Resected and retrieved. - Congested mucosa in the cecum. Biopsied. Recommendations : - Discharge patient to home. - Resume previous diet. - Continue present medications. - Await pathology results. - Repeat colonoscopy in 1 year for surveillance of multiple polyps. My findings are described in the full procedure note, which is enclosed. If I can be of further assistance, please feel free to contact me at . Sincerely, Hero Hodges DO 04/09/2022 8:38:40 AM This report has been signed electronically.
== END 2022-04-09 09:26 | disposition home or self-care (01) ==
LOC: EN 06:27 → AC 06:28
PROVIDERS: PCP Family Medicine Geriatric Medicine; Referring Provider Family Medicine Geriatric Medicine; Visit Provider Internal Medicine Gastroenterology
PROC: 0DJD8ZZ Inspection of Lower Intestinal Tract, Via Natural or Artificial Opening Endoscopic (ICD-10-PCS; CPT 45378; principal; 2022-04-09 07:25)
DX: Z12.11 Encounter for screening for malignant neoplasm of colon (principal); J44.9 Chronic obstructive pulmonary disease, unspecified; D12.4 Benign neoplasm of descending colon; D12.3 Benign neoplasm of transverse colon; K35.33 Acute appendicitis with perforation, localized peritonitis, and gangrene, with abscess; K63.89 Other specified diseases of intestine; K57.30 Diverticulosis of large intestine without perforation or abscess without bleeding; F32.A Depression, unspecified; E78.00 Pure hypercholesterolemia, unspecified; Z79.899 Other long term (current) drug therapy
CPT/HCPCS: 45385; 45380; 88305; J7120; J2405

== ENCOUNTER → 2022-07-17 | Outpatient (CLI) | payer MEDICARE, SELFPAY ==
[2022-07-17 12:22] LABS: Absolute Lymphocyte Count 1.25 X10^3/uL (0.83-4.51); Absolute Neutrophil Count 3.7 X10^3/uL (2.0-7.7); Basophil# 0.03 X10^3/uL; Basophil% 0.5 % (0-1); Eosinophil# 0.31 X10^3/uL; Eosinophils% 5.4 % (0-5); Lymphocyte # 1.25 X10^3/ul (0.83-4.51); Lymphocyte % 21.7 % (19-41); Mean Corp Hgb Conc 33.3 g/dL (32-36); Mean Corpuscular Hgb 30.6 pg (27.0-32.0); Mean Corpuscular Volume 91.8 fL (80-94); Mean Platelet Vol. 10.7 fl (6.2-12.0); Monocyte# 0.44 X10^3/uL; Monocyte% 7.6 % (0-10); NRBC Flagged by Analyzer 0 % (0-5); Neutrophil # 3.71 X10^3/uL (2.7-7.7); Neutrophil % 64.5 % (47-70); Platelet Count 221 K/mm3 (150-450); RBC Distribution Width CV 12.9 % (11.6-14.6); RBC Distribution Width SD 43.3 fl (35.1-43.9); Red Blood Count 5.23 M/mm3 (4.6-6.2); White Blood Count 5.8 K/mm3 (4.4-11.0)
[2022-07-17 12:36] LABS: Vitamin D,25 Hydroxy 18.1 ng/mL
[2022-07-17 12:55] LABS: AST(SGOT) 15 U/L (15-37); Alanine Aminotransfer ALT/SGPT 22 U/L (16-61); Albumin, Serum 3.8 g/dL (3.2-5.0); Alkaline Phosphatase 146 U/L (45-117); Anion Gap 7 (5-15); BUN 10 mg/dL (7-18); Calcium,Total 9.2 mg/dL (8.5-10.1); Chloride 103 mmol/L (98-107); Creatinine, Serum 0.84 mg/dL (0.70-1.30); EST Glomerular Filtration Rate 97 mL/min (>60); Est Glom Filt Rate - Afr Amer 117 mL/min (>60); Globulin 3.9 g/dL (2.2-4.2); Glucose 108 mg/dL (74-106); Potassium 4.8 mmol/L (3.5-5.1); Protein, Total 7.7 g/dL (6.4-8.2); Sodium Level 139 mmol/L (136-145); Thyroid Stim Hormone (TSH) 3.64 uIU/mL (0.358-3.74)
== END | disposition home or self-care (01) ==
LOC: POLAB3 09:38
PROVIDERS: PCP Family Medicine Geriatric Medicine; Visit Provider Family Medicine Geriatric Medicine
DX: R53.83 Other fatigue (principal); E55.9 Vitamin D deficiency, unspecified
CPT/HCPCS: 36415; 80053; 82306; 84443; 85025

== ENCOUNTER → 2023-01-15 | Outpatient (CLI) | payer MEDICARE, SELFPAY ==
[2023-01-15 12:51] LABS: Absolute Lymphocyte Count 1.15 X10^3/uL (0.83-4.51); Absolute Neutrophil Count 4.9 X10^3/uL (2.0-7.7); Basophil# 0.04 X10^3/uL; Basophil% 0.6 % (0-1); Eosinophil# 0.34 X10^3/uL; Eosinophils% 4.9 % (0-5); Hematocrit 48.4 % (40-54); Hemoglobin 15.9 g/dL (13.0-16.5); Lymphocyte # 1.15 X10^3/ul (0.83-4.51); Lymphocyte % 16.5 % (19-41); Mean Corp Hgb Conc 32.9 g/dL (32-36); Mean Corpuscular Hgb 29.2 pg (27.0-32.0); Mean Corpuscular Volume 88.8 fL (80-94); Mean Platelet Vol. 10.6 fl (6.2-12.0); Monocyte# 0.48 X10^3/uL; Monocyte% 6.9 % (0-10); NRBC Flagged by Analyzer 0 % (0-5); Neutrophil # 4.94 X10^3/uL (2.7-7.7); Neutrophil % 70.8 % (47-70); Platelet Count 231 K/mm3 (150-450); RBC Distribution Width CV 13.2 % (11.6-14.6); RBC Distribution Width SD 42.5 fl (35.1-43.9); Red Blood Count 5.45 M/mm3 (4.6-6.2)
[2023-01-15 13:04] LABS: Vitamin D,25 Hydroxy 20.2 ng/mL
[2023-01-15 13:22] LABS: ALB/GLOB Ratio 1.1 RATIO (0.9-2.4); AST(SGOT) 17 U/L (15-37); Alanine Aminotransfer ALT/SGPT 21 U/L (16-61); Albumin, Serum 3.7 g/dL (3.2-5.0); Alkaline Phosphatase 141 U/L (45-117); Anion Gap 9 (5-15); BUN 14 mg/dL (7-18); BUN/Creat Ratio 16.5 RATIO (10-20); Calcium,Total 8.8 mg/dL (8.5-10.1); Chloride 104 mmol/L (98-107); Creatinine, Serum 0.85 mg/dL (0.70-1.30); EST Glomerular Filtration Rate 94 mL/min (>60); Est Glom Filt Rate - Afr Amer 114 mL/min (>60); Globulin 3.5 g/dL (2.2-4.2); Glucose 124 mg/dL (74-106); Potassium 4.1 mmol/L (3.5-5.1); Protein, Total 7.2 g/dL (6.4-8.2); Sodium Level 137 mmol/L (136-145); Thyroid Stim Hormone (TSH) 2.32 uIU/mL (0.358-3.74)
== END | disposition home or self-care (01) ==
LOC: POLAB3 09:03
PROVIDERS: PCP Family Medicine Geriatric Medicine; Visit Provider Family Medicine Geriatric Medicine
DX: E55.9 Vitamin D deficiency, unspecified (principal); R53.83 Other fatigue
CPT/HCPCS: 36415; 80053; 82306; 84443; 85025

== ENCOUNTER 2023-04-15 05:25 | Day surgery (SDC) | payer MEDICARE, SELFPAY ==
[2023-04-15] VITALS (11 sets, daily range): BP systolic 77–141; BP diastolic 53–80; PULSE 55–64; RESP 13–18; TEMP 36.6–36.8; O2SAT 89–94
[2023-04-15] MEDS: Lactated Ringers 1,000 ML 15 ML IV ×2 (05:40→07:35)
--- NOTE | 2023-04-15 06:30 | COLBX_PTH ---
PATIENT: CHAPITO TRAORE LOC: EN U#:[id number] AGE/SX: 72/M ROOM: RE04/15/[address]: Dr. Hero Hodges DO : 1950 BED: DIS: 04/15/2023 SPEC #: [id number] RECD: 04/15/23 10:16 STATUS: IRMA CRISTHIAN #: [id number] FROYLAN: 04/15/23 06:[address]: Hero Hodges DEPT: SURGICAL PATHOLOGY RECD BY: Agueda Shelton ENTERED: 04/15/23 11:04 SP TYPE: COLON BX OT DR: Dr. Arslan Hernandez MD Tissues: A - Cecum, NOS B - Transverse colon Procedures: Surgery Specimen Level IV HEADER OPERATION: Colonoscopy ? open access (MAC) with biopsies PRE-OP DIAGNOSIS: Screening TISSUE SUBMITTED: A ? Cecum biopsy for colitis, B ? Transverse colon polyp biopsy MICROSCOPIC DIAGNOSIS A. Cecum, biopsy: Fragments of colonic mucosa, no pathologic diagnosis. B. Transverse colon polyp, biopsy: Fragments of tubular adenoma. SJ:theodore 04/16/2023 COMMENT Please make reference to previous specimen ([id number]), sigmoid colon polyp, biopsy with diagnosis of ?hyperplastic polyp? and descending colon polyp, biopsy with diagnosis of ?tubular adenoma? and cecum, biopsy with diagnosis of ?focal crypt abscess? and colonic polyp at hepatic flexure, biopsy with diagnosis of ?colonic mucosa with hyperplastic change? and transverse colon polyp, biopsy with diagnosis of ?tubular adenoma? and colonic polyp at splenic flexure, biopsy with diagnosis of ?colonic mucosa with focal hyperplastic change? and descending colon polyp, biopsy with diagnosis of ?fragments of hyperplastic polyp and fragments of tubular adenoma.? MICROSCOPIC DESCRIPTION Slides are reviewed. GROSS DESCRIPTION A - Received in fixative is one container labeled with the patient's name and designated cecum biopsy for colitis. The specimen consists of multiple irregular fragments of light rowan soft tissue that in aggregate measure 1.0 x 0.4 x 0.1 cm. The specimen is totally submitted in one cassette. B - Received in fixative is one container labeled with the patient's name and designated transverse colon polyp biopsy. The specimen consists of multiple irregular fragments of light rowan soft tissue that in aggregate measure 1.0 x 0.3 x 0.1 cm. The specimen is totally submitted in one cassette. / SJ:rg 04/15/2023 TC:1 CPT: 15423 x2
--- NOTE | 2023-04-15 06:33 | HP.PCM_ITS ---
[facility] - General General Date of Admission: 04/15/23 Date of Service: 04/15/23 Chief Complaint: Colon surveillance of history of polyps HPI Narrative CHAPITO TRAORE, is a 72 M who presents for follow-up colonoscopy after undergoing a colonoscopy a year ago and was discovered to have 8 adenomatous polyps. He comes back in for surveillance colonoscopy. He is not having any problems with his bowels. He does have a past medical history of mild depression, hypercholesterolemia and seizure disorder. He has been stable with no changes in medicines within the last 6 months. [facility] Medical History (Updated 04/10/23 @ 11:42 by Georgette Silvestre) Cancer COPD (chronic obstructive pulmonary disease) Depression Former smoker High cholesterol Loss of hearing Trigeminal neuralgia Wears glasses Home Medications venlafaxine 150 mg capsule,extended release 24 hr (Effexor XR) 150 mg PO DAILY depression 04/21/14 [History Last Taken 10/28/17 07:00] pravastatin 40 mg tablet 40 mg PO QHS cholestoral 10/14/17 [History Last Taken Unknown] albuterol sulfate 90 mcg/actuation aerosol inhaler 2 puff inhalation PRN PRN Dyspnea 04/08/22 [History Last Taken Unknown] oxcarbazepine 300 mg tablet 300 mg PO BID 01/15/23 [History Last Taken Unknown] Allergy/AdvReac Type Severity Reaction Status Date / Time No Known Allergies Allergy Verified 04/15/23 05:53 Family History (Updated 01/15/23 @ 13:51 by Marianne Dougherty) Father Colon cancer Surgical History (Updated 04/10/23 @ 11:42 by Georgette Silvestre) History of appendectomy History of colonoscopy History of knee joint replacement Social History (Updated 01/15/23 @ 13:51 by Marianne Dougherty) household members: spouse Smoking Status: Current every day smoker tobacco type: smokeless tobacco ROS Review of Systems ROS Unobtainable: other Constitutional Constitutional: Denies fatigue, fever(s), poor appetite, weight gain or weight loss ENT HEENT: Denies mouth lesions Cardiovascular Cardiovascular: Denies abdominal bloating, abdominal edema or abdominal pain Respiratory/Chest Respiratory/Chest: Denies change in mental status, change in phlegm color, chest congestion or chest tightness Gastrointestinal Gastrointestinal: Denies belching, bloating, change in bowel habits, change in stool character, chewing difficulty, coffee ground emesis, constipation, cramping, diarrhea, dyspepsia, dysphagia, early satiety, excessive flatus, fecal incontinence, heartburn, hematemesis, hematochezia, hemorrhoids, loose stools, melena, nausea, odynophagia, rectal bleeding, tenesmus, vomiting or weight changes Genitourinary Genitourinary: Denies abdominal discomfort, burning urination or itching Musculoskeletal Musculoskeletal: Reports as per HPI; Denies muscle weakness or myalgias Integumentary Integumentary: Denies jaundice Neurologic Neurologic: Denies lack of coordination or weakness Psychiatric Psychiatric: Denies confusion, depression, memory loss, mood swings, paranoia or suicidal ideation Endocrine Endocrinology: Denies systems reviewed and no addt'l complaints, except as documented Hematologic/Lymphatic Hematologic/Lymphatic: Denies anemia, easy bleeding, easy bruising or lymphadenopathy Allergic/Immunologic Allergic/Immunologic: Denies systems reviewed and no addt'l complaints, except as documented Vital Signs Vital Signs Vital Signs: 04/15/23 05:53 Respiratory Pattern Normal Physical Exam Const alert General Appearance: cooperative Orientation / Consciousness: oriented to person HEENT hearing grossly normal bilaterally Head and Scalp: normal to inspection Face and Sinus: face symmetric Nose: external nose normal Mouth: oral and palatal mucosa normal Eyes conjunctivae normal General Eye: normal appearance of both eyes Neck full ROM General: normal visual inspection Lymph Lymphatic: no lymphadenopathy noted Chest inspection of chest normal and palpation of chest normal Chest: symmetrical chest wall rise Resp normal respiratory effort Effort and Inspection: able to speak in complete sentences Cardio regular rate GI non-distended Percussion: normal to percussion Rectal Exam: deferred Neuro Speech: speech normal Gait (Neuro): normal gait Assessment & Plan Assessment/Plan (1) Encounter for screening for malignant neoplasm of colon: PLAN: He was explained alternatives, risk, benefits including not withstanding bleeding, infection, sepsis, perforation, need for emergent surgery and . He will be an ASA of 2.
--- NOTE | 2023-04-15 07:20 | OP.COLON_ITS ---
Patient Name: Grabiel Beckwith Procedure Date: 04/15/2023 6:35 AM Date of : 1950 Age: 72 Procedure: Colonoscopy Indications: Follow-up for history of adenomatous polyps in the colon Providers: Hero Hodges DO Referring MD: Hero Hodges DO Medicines: Monitored Anesthesia Care Patient Profile: This is a 72 year old male. Refer to note in patient chart for documentation of history and physical. Last Colonoscopy: 1 year ago. Complications: No immediate complications. Procedure: Pre-Anesthesia Assessment: - Prior to the procedure, a History and Physical was performed, and patient medications and allergies were reviewed. The risks and benefits of the procedure and the sedation options and risks were discussed with the patient. All questions were answered and informed consent was obtained. Patient identification and proposed procedure were verified by the physician in the pre-procedure area. Mental Status Examination: alert and oriented. Airway Examination: normal oropharyngeal airway and neck mobility. Respiratory Examination: clear to auscultation. CV Examination: normal. Prophylactic Antibiotics: The patient does not require prophylactic antibiotics. Prior Anticoagulants: The patient has taken no previous anticoagulant or antiplatelet agents. ASA Grade Assessment: II - A patient with mild systemic disease. After reviewing the risks and benefits, the patient was deemed in satisfactory condition to undergo the procedure. The anesthesia plan was to use monitored anesthesia care (MAC). Immediately prior to administration of medications, the patient was re-assessed for adequacy to receive sedatives. The heart rate, respiratory rate, oxygen saturations, blood pressure, adequacy of pulmonary ventilation, and response to care were monitored throughout the procedure. The physical status of the patient was re-assessed after the procedure. After I obtained informed consent, the scope was passed under direct vision. Throughout the procedure, the patient's blood pressure, pulse, and oxygen saturations were monitored continuously. The colonoscope was introduced through the anus and advanced to the cecum, identified by appendiceal orifice and ileocecal valve. The colonoscopy was performed without difficulty. The patient tolerated the procedure well. The quality of the bowel preparation was adequate. Scope In: 6:46:24 AM Scope Withdrawal Time 0 hours 7 minutes 55 seconds Scope Out: 7:12:10 AM Total Procedure Duration Time 0 hours 25 minutes 46 seconds Findings: The perianal and digital rectal examinations were normal. A 7 mm polyp was found in the transverse colon. The polyp was sessile. The polyp was removed with a cold snare. Resection and retrieval were complete. Verification of patient identification for the specimen was done. Estimated blood loss was minimal. A localized area of mildly altered vascular, atrophic and congested mucosa was found in the cecum. Biopsies were taken with a cold forceps for histology. Verification of patient identification for the specimen was done. Estimated blood loss was minimal. Impression: - One 7 mm polyp in the transverse colon, removed with a cold snare. Resected and retrieved. - Altered vascular, atrophic and congested mucosa in the cecum. Biopsied. Recommendation: - Discharge patient to home. - Resume previous diet. - Continue present medications. - Await pathology results. - Repeat colonoscopy in 5 years for surveillance. Procedure Code(s): --- Professional --- 16380, Colonoscopy, flexible; with removal of tumor(s), polyp(s), or other lesion(s) by snare technique 37629, 59, Colonoscopy, flexible; with biopsy, single or multiple CPT copyright 2017 [employer]. All rights reserved. The codes documented in this report are preliminary and upon acquisition cost estimator review may be revised to meet current compliance requirements. Hero Hodges DO 04/15/2023 7:19:52 AM This report has been signed electronically. Number of Addenda: 0 Note Initiated On: 04/15/2023 6:35 AM
--- NOTE | 2023-04-15 07:21 | OP.CCLET_ITS ---
04/15/2023 Arslan Hernandez MD [address] [place] [address] Re : Colonoscopy procedure for Grabiel Beckwith Dear Dr. Hernandez This procedure was performed on Saturday, April 15, 2023. My impressions and recommendations are as follows: Impressions : - One 7 mm polyp in the transverse colon, removed with a cold snare. Resected and retrieved. - Altered vascular, atrophic and congested mucosa in the cecum. Biopsied. Recommendations : - Discharge patient to home. - Resume previous diet. - Continue present medications. - Await pathology results. - Repeat colonoscopy in 5 years for surveillance. My findings are described in the full procedure note, which is enclosed. If I can be of further assistance, please feel free to contact me at . Sincerely, Hero Hodges, 04/15/2023 7:19:52 AM This report has been signed electronically.
--- NOTE | 2023-04-15 07:35 | SUR.PHASEI ---
HYPOTENSIVE, SBP 70-80'S, REQUIRING 4 L/MIN O2 PER NC BUT BREATHING WELL INDEPENDENTLY, SEDATED FROM PROCEDURE. DR ROMANO NOTIFIED WHO ORDERED A 1 LITER IVF BOLUS.
== END 2023-04-15 08:32 | disposition home or self-care (01) ==
LOC: EN 05:26 → AC 05:28
PROVIDERS: PCP Family Medicine Geriatric Medicine; Referring Provider Family Medicine Geriatric Medicine; Visit Provider Internal Medicine Gastroenterology
PROC: 0DJD8ZZ Inspection of Lower Intestinal Tract, Via Natural or Artificial Opening Endoscopic (ICD-10-PCS; CPT 45378; principal; 2023-04-15 06:25)
DX: Z12.11 Encounter for screening for malignant neoplasm of colon (principal); J44.9 Chronic obstructive pulmonary disease, unspecified; Z86.010 Personal history of colon polyps; F17.220 Nicotine dependence, chewing tobacco, uncomplicated; E78.00 Pure hypercholesterolemia, unspecified; D12.3 Benign neoplasm of transverse colon; Z80.0 Family history of malignant neoplasm of digestive organs; Z79.899 Other long term (current) drug therapy
CPT/HCPCS: 45380; 45385; 88305; J7120; J2405

== ENCOUNTER 2023-04-24 19:45 | Emergency (ER) | payer MEDICARE, SELFPAY ==
[2023-04-24 19:46] VITALS: BP 160/82; PULSE 88; RESP 16; TEMP 36.2; O2SAT 96; BMI 34.0
--- NOTE | 2023-04-24 20:22 | EDS_ITS ---
HPI <BETTY Thomas - Last Filed: 04/24/23 21:02> History of Present Illness Chief Complaint: Laceration Narrative Narrative: Patient presenting today due to a laceration on his right hand that he got while playing with his puppy this evening. The puppy accidentally cut his hand with her teeth. Puppy is up-to-date on vaccines. Patient is up-to-date on tetanus. He denies any other injury. He is not on any blood thinners. PFSH <BETTY Thomas - Last Filed: 04/24/23 21:02> PFSH Medical History Cancer COPD (chronic obstructive pulmonary disease) Depression Former smoker High cholesterol Loss of hearing Trigeminal neuralgia Wears glasses Home Medications venlafaxine 150 mg capsule,extended release 24 hr (Effexor XR) 150 mg PO DAILY depression 04/21/14 [History Last Taken 10/28/17 07:00] pravastatin 40 mg tablet 40 mg PO QHS cholestoral 10/14/17 [History Last Taken Unknown] albuterol sulfate 90 mcg/actuation aerosol inhaler 2 puff inhalation PRN PRN Dyspnea 04/08/22 [History Last Taken Unknown] oxcarbazepine 300 mg tablet 300 mg PO BID 01/15/23 [History Last Taken Unknown] amoxicillin 875 mg-potassium clavulanate 125 mg tablet 1 tab PO BID 7 days #14 tabs 04/24/23 [Rx Last Taken Unknown] Allergy/AdvReac Type Severity Reaction Status Date / Time No Known Allergies Allergy Verified 04/24/23 19:46 Family History Father Colon cancer Surgical History History of appendectomy History of colonoscopy History of knee joint replacement Social History household members: spouse Smoking Status: Current every day smoker tobacco type: smokeless tobacco ROS <BETTY Thomas - Last Filed: 04/24/23 21:02> ROS ED Constitutional Constitutional ED: Denies chills or fever(s) Eyes Eyes: Denies blurry vision Cardiovascular Cardiovascular: Denies chest pain Respiratory/Chest Respiratory/Chest: Denies cough or dyspnea Gastrointestinal Gastrointestinal: Denies abdominal pain, nausea or vomiting Musculoskeletal Musculoskeletal: Denies arthralgias or myalgias Integumentary Reports laceration Neurologic Neurologic: Denies weakness EXAM <BETTY Thomas - Last Filed: 04/24/23 21:02> Physical Exam Const Vital Signs: 04/24/23 19:46 Temperature 97.2 F L Temperature Source Temporal Pulse Rate 88 Respiratory Rate 16 Blood Pressure 160/82 H Blood Pressure Mean 108 Pulse Ox 96 Positive well nourished, well developed and no apparent distress General Appearance ED: well developed HEENT Reports normocephalic and head/scalp atraumatic Mouth ED: Yes moist mucous membranes normal Eyes PERRL and EOMs intact bilaterally Neck full ROM and supple Chest Wall inspection of chest normal Resp normal respiratory effort and clear to auscultation bilaterally Cardio regular rate and regular rhythm GI soft to palpation, non-tender, non-distended and no masses Back/Spine normal ROM and normal to inspection Extremity normal to inspection and full ROM Extremity Narrative: 3 cm linear laceration to the right hand near the medial base of the right thumb. Radial pulses 2+ and equal bilaterally, good capillary refill, sensation intact. Neuro oriented x3, CN's II-XII intact bilaterally, moves all extremities, no focal motor deficits and no sensory deficits noted Sensorium / Orientation: awake and alert Psych mental status grossly normal and thought process normal Skin no rashes or lesions noted and no wounds <Dr. Keron Ding MD - Last Filed: 04/25/23 00:21> Physical Exam Const Vital Signs: 04/24/23 19:46 Temperature 97.2 F L Temperature Source Temporal Pulse Rate 88 Respiratory Rate 16 Blood Pressure 160/82 H Blood Pressure Mean 108 Pulse Ox 96 PROC <BETTY Thomas - Last Filed: 04/24/23 21:02> Procedures Lacerations Laceration: Length: 3 cm Depth: Sub Q Shape: Linear Prep: Chlorhexadine Laceration repair: Irrigated and Skin sutures Irrigated (ml): 40 Number of Sutures/[place]: 1 Suture Information: Ethilon (5-0) MDM <BETTY Thomas - Last Filed: 04/24/23 21:02> [facility] MDM Narrative Medical decision making narrative: Patient presenting today with a laceration to his right hand that he got from his puppy while they were playing this evening. He is up-to-date on tetanus, no blood thinners. 3 cm laceration to the medial aspect of the base of the right thumb. The wound was extensively irrigated with saline and cleaned with chlorhexidine, 1 loose stitch was placed just to help approximate wound. Bacitracin ointment was applied and the wound was bandaged. Patient discharged home in stable condition. He is to have the stitch removed in 7 days and follow-up with PCP. He has been started on Augmentin with first dose here. He is comfortable with plan. <Dr. Keron Ding MD - Last Filed: 04/25/23 00:21> [facility] Treatment and Re-Evaluation Narrative: I have personally performed a face to face assessment of the patient and have reviewed the CARLA Note. I performed a substantive portion of the visit including all aspects of the following. My starks findings include: History: Patient's puppy made a laceration on his right hand this evening. No other injury. He states tetanus is up-to-date. No active bleeding. Exam: Patient has a 3 cm laceration to the dorsum of the right hand overlying the proximal first metacarpal. No active bleeding. Tendon function neurologic function capillary refill are all intact. Medical Decision Making: We do not want to close this tightly. But it looks as it does gape open we will put a stitch in the middle just to hold the edges near each other. He will be placed on Augmentin. We discussed risk of infections and reasons to return. Discharge Plan Triage Chief Complaint: Laceration ED Midlevel Provider: Farida Morse ED Provider: Keron Ding Dx/Rx/DC Orders Clinical Impression: Dog bite Instructions: ED Dog Bite Prescriptions: New amoxicillin-pot clavulanate 875-125 mg tablet 1 tab PO BID 7 Days Qty: 14 0RF No Action oxcarbazepine 300 mg tablet 300 mg PO BID venlafaxine [Effexor XR] 150 MG capsule,extended release 24hr 150 mg PO DAILY pravastatin 40 MG tablet 40 mg PO QHS albuterol sulfate 90 mcg/actuation HFA aerosol inhaler 2 puff INHALATION PRN PRN (Reason: Dyspnea) Label Comments: INHALE 2 PUFFS 6 TIMES A DAY NEEDED FOR WHEEZING Primary Care Provider: Arslan Hernandez Chi Referrals: Arslan Hernandez Chi, MD [Primary Care Provider] - 3-5 Days Activity Restrictions/Additional Instructions: Please follow-up with your PCP, return for any signs of infection such as increased redness, swelling, puslike discharge, fever, chills. Keep area clean and covered. Have stitch removed in 7 days. Disposition Disposition: Home, Self Care Discharge Date/Time: 04/24/23 21:04
[2023-04-24] MEDS: Amox/Clavulanate 875 MG Tablet PO (20:42)
== END 2023-04-24 21:04 | disposition home or self-care (01) ==
PROVIDERS: Emergency Provider Emergency Medicine; PCP Family Medicine Geriatric Medicine; Visit Provider Emergency Medicine
DX: S61.411A Laceration without foreign body of right hand, initial encounter (principal); J44.9 Chronic obstructive pulmonary disease, unspecified; E78.00 Pure hypercholesterolemia, unspecified; F17.220 Nicotine dependence, chewing tobacco, uncomplicated; W26.8XXA Contact with other sharp object(s), not elsewhere classified, initial encounter
CPT/HCPCS: 99283

== ENCOUNTER → 2023-07-21 | Outpatient (CLI) | payer MEDICARE, SELFPAY ==
[2023-07-21 10:47] LABS: Absolute Lymphocyte Count 1.19 X10^3/uL (0.83-4.51); Absolute Neutrophil Count 3.9 X10^3/uL (2.0-7.7); Basophil# 0.03 X10^3/uL; Basophil% 0.5 % (0-1); Eosinophil# 0.35 X10^3/uL; Eosinophils% 5.9 % (0-5); Hematocrit 47.9 % (40-54); Hemoglobin 15.7 g/dL (13.0-16.5); Lymphocyte # 1.19 X10^3/ul (0.83-4.51); Lymphocyte % 20.1 % (19-41); Mean Corp Hgb Conc 32.8 g/dL (32-36); Mean Corpuscular Hgb 29.7 pg (27.0-32.0); Mean Corpuscular Volume 90.7 fL (80-94); Mean Platelet Vol. 9.8 fl (6.2-12.0); Monocyte# 0.48 X10^3/uL; Monocyte% 8.1 % (0-10); NRBC Flagged by Analyzer 0 % (0-5); Neutrophil # 3.86 X10^3/uL (2.7-7.7); Neutrophil % 65.1 % (47-70); Platelet Count 225 K/mm3 (150-450); RBC Distribution Width CV 13.5 % (11.6-14.6); RBC Distribution Width SD 44.5 fl (35.1-43.9); Red Blood Count 5.28 M/mm3 (4.6-6.2); White Blood Count 5.9 K/mm3 (4.4-11.0)
[2023-07-21 11:10] LABS: Vitamin D,25 Hydroxy 23.6 ng/mL
[2023-07-21 11:17] LABS: AST(SGOT) 17 U/L (15-37); Alanine Aminotransfer ALT/SGPT 20 U/L (16-61); Albumin, Serum 3.7 g/dL (3.2-5.0); Alkaline Phosphatase 156 U/L (45-117); Anion Gap 2 (5-15); BUN 13 mg/dL (7-18); BUN/Creat Ratio 15.6 RATIO (10-20); Calcium,Total 8.7 mg/dL (8.5-10.1); Chloride 103 mmol/L (98-107); Creatinine, Serum 0.83 mg/dL (0.70-1.30); EST Glomerular Filtration Rate 97 mL/min (>60); Est Glom Filt Rate - Afr Amer 117 mL/min (>60); Globulin 3.6 g/dL (2.2-4.2); Glucose 100 mg/dL (74-106); Potassium 4.3 mmol/L (3.5-5.1); Protein, Total 7.3 g/dL (6.4-8.2); Sodium Level 136 mmol/L (136-145); Thyroid Stim Hormone (TSH) 2.06 uIU/mL (0.358-3.74)
== END | disposition home or self-care (01) ==
LOC: POLAB3 10:05
PROVIDERS: PCP Family Medicine Geriatric Medicine; Visit Provider Family Medicine Geriatric Medicine
DX: R53.83 Other fatigue (principal); E55.9 Vitamin D deficiency, unspecified
CPT/HCPCS: 36415; 80053; 82306; 84443; 85025

== ENCOUNTER 2023-08-05 11:52 | Emergency (ER) | payer MEDICARE, SELFPAY ==
[2023-08-05 11:52] VITALS: BP 172/90; PULSE 89; RESP 18; TEMP 36.3; O2SAT 98; BMI 34.2
--- NOTE | 2023-08-05 12:24 | CT_ITS ---
HISTORY: pain. TECHNIQUE: Multiple axial images were obtained of the head before and after the intravenous administration of 100 cc Isovue 300. A radiation dose optimization technique was used for this scan. 358 images. COMPARISON: None. FINDINGS: BRAIN PARENCHYMA: Multiple foci and zones of low attenuation in the bilateral cerebral white matter compatible with chronic small vessel ischemic gliosis. Enhancing lesion identified. 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 No acute intra-axial hemorrhage identified. CSF SPACES: Generalized volume loss. No midline shift or other significant mass effect. No acute extra-axial hemorrhage seen. OTHER: Intact calvarium. Mild maxillary sinus mucosal thickening. Unremarkable orbits. CT/Brain/Head W/WO Contrast IMPRESSION: No acute intracranial process or enhancing intracranial mass identified. Mild chronic involutional and white matter changes. Electronically Signed: Chelsie Bond MD at 13:51 EDT ,
--- NOTE | 2023-08-05 12:24 | CT_ITS ---
HISTORY: facial pain TECHNIQUE: Helically acquired images were obtained of the paranasal sinuses and facial bones after the intravenous administration of 100 cc Isovue 300. A radiation dose optimization technique was used for this scan. 490 images. Comparison none. FINDINGS: FRONTAL SINUSES AND ETHMOID AIR CELLS: Mild mucosal thickening of the ethmoid air cells without significant air fluid levels. MAXILLARY SINUSES: Right maxillary sinus mucous retention cyst without significant air fluid levels. Very mild left maxillary sinus mucosal thickening. OSTIOMEATAL COMPLEXES: Patent bilaterally. SPHENOID SINUSES: Clear. NASAL CAVITY: Clear. No significant nasal septal deviation or obstructing spur. MASTOID AIR CELLS: Clear bilaterally. ORBITS: Symmetric contents without enhancing lesion or fluid collection. OTHER: No acute fracture or dislocation identified. Generalized osteopenia. No destructive osseous lesion seen. No rim-enhancing fluid collection of the face. Incompletely imaged fluid or small cyst in the left vallecula. Fatty atrophy of the right submandibular gland. CT/Sinus/Facial Bone WITH Contras IMPRESSION: Mild maxillary sinus mucosal thickening without significant air fluid levels in the paranasal sinuses. No evidence for facial abscess or acute osseous abnormality. Electronically Signed: Chelsie Bond MD at 14:00 EDT ,
[2023-08-05] MEDS: Ondansetron 4 MG/2 ML Vial IV (12:46)
[2023-08-05] MEDS: Morphine 4 MG/ML Syringe IV (12:46)
[2023-08-05 12:58] LABS: Anion Gap 5 (5-15); BUN 19 mg/dL (7-18); BUN/Creat Ratio 24.1 RATIO (10-20); CRP < 2.90 mg/L (0.0-3.0); Calcium,Total 8.9 mg/dL (8.5-10.1); Chloride 101 mmol/L (98-107); Creatinine, Serum 0.79 mg/dL (0.70-1.30); EST Glomerular Filtration Rate 103 mL/min (>60); Est Glom Filt Rate - Afr Amer 124 mL/min (>60); Estimated Creatinine Clearance 76.57 ml/min; Glucose 157 mg/dL (74-106); Potassium 4.1 mmol/L (3.5-5.1); Sodium Level 132 mmol/L (136-145)
--- NOTE | 2023-08-05 12:58 | EDS_ITS ---
HPI History of Present Illness Chief Complaint: Other, Pain/Inj Narrative Narrative: 72-year-old male with right-sided facial pain. He has a 2-year history of trigeminal neuralgia. He is currently on oxcarbazepine, prednisone. He was given a prescription for baclofen however his pharmacy did not carry it. He states that he called Dr. Hernandez's office and was told to go to the emergency room if his pain was uncontrolled. He has a referral to pain management August 10. He also has a appointment with an ENT upcoming. Patient states that his primary care physician did not provide him any narcotic pain medication or anything stronger than the oxcarbazepine however he is taking this twice a day now. He states it was pretty well controlled up out 3 weeks ago. He states he has trouble chewing due to pain on the right side and he also states that he has difficulty using his tongue secondary to pain. He is able to swallow. Patient states that he is never had any imaging of his facial bones or his brain. [facility] Medical History Cancer COPD (chronic obstructive pulmonary disease) Depression Former smoker High cholesterol Loss of hearing Trigeminal neuralgia Wears glasses Home Medications venlafaxine 150 mg capsule,extended release 24 hr (Effexor XR) 150 mg PO DAILY depression 04/21/14 [History Last Taken 10/28/17 07:00] pravastatin 40 mg tablet 40 mg PO QHS cholestoral 10/14/17 [History Last Taken Unknown] albuterol sulfate 90 mcg/actuation aerosol inhaler 2 puff inhalation PRN PRN Dyspnea 04/08/22 [History Last Taken Unknown] oxcarbazepine 300 mg tablet 300 mg PO BID 01/15/23 [History Last Taken Unknown] amoxicillin 875 mg-potassium clavulanate 125 mg tablet 1 tab PO BID 7 days #14 tabs 04/24/23 [Rx Last Taken Unknown] Allergy/AdvReac Type Severity Reaction Status Date / Time No Known Allergies Allergy Verified 04/24/23 19:46 Family History Father Colon cancer Surgical History History of appendectomy History of colonoscopy History of knee joint replacement Social History household members: spouse Smoking Status: Current every day smoker tobacco type: smokeless tobacco ROS ROS ED Constitutional Constitutional ED: Denies chills or fever(s) Eyes Eyes: Denies blurry vision or change in vision ENT ENT ED: Denies ear pain or rhinorrhea Cardiovascular Cardiovascular: Denies chest pain or palpitations Respiratory/Chest Respiratory/Chest: Denies cough or dyspnea Gastrointestinal Gastrointestinal: Denies abdominal pain Genitourinary Genitourinary ED: Denies dysuria or hematuria Musculoskeletal Musculoskeletal: Denies arthralgias Integumentary Denies Abrasions or rash Neurologic Neurologic: Reports other Details: Right sided facial pain Psychiatric Psychiatric: Denies anxiety or depression Endocrine Endocrinology: Denies cold intolerance or heat intolerance EXAM Physical Exam Const Vital Signs: 08/05/23 11:52 08/05/23 12:21 Temperature 97.3 F L Temperature Source Temporal Pulse Rate 89 Respiratory Rate 18 Respiratory Effort Normal Non-Labored Respiratory Pattern Normal Blood Pressure 172/90 H Blood Pressure Mean 117 Pulse Ox 98 Oxygen Delivery Method Room Air Positive well nourished General Appearance ED: Negative for pallor HEENT Reports moist mucous membranes HEENT Narrative: To palpation over the right side of the face. No deformities, erythema, crepitance. No rashes. No jaw malocclusion. Patient tolerated and secretions. Is able to open his mouth without trismus. Negative for trauma Eyes PERRL and EOMs intact bilaterally Resp normal respiratory effort and clear to auscultation bilaterally Cardio regular rate Extremity normal to inspection Neuro oriented x3 and CN's II-XII intact bilaterally Sensorium / Orientation: alert Psych mental status grossly normal Skin no rashes or lesions noted General Skin Exam: Negative for jaundice or pallor MDM MDM MDM Narrative Medical decision making narrative: With facial pain for 2 years. He is diagnosed with trigeminal neuralgia. He states his medications really controlled the pain up until about 3 weeks ago. He has seen Dr. Hernandez. He is currently on prednisone, oxcarbazepine 300 mg p.o. twice daily and is written for baclofen however he did not pick this up because the pharmacy was out of it. He has not spoken to Dr. Hernandez about getting a recent prescription to another pharmacy. He states the last he heard Dr. Hernandez told him to come to the emergency room his pain was not controlled. Patient does have pain on the right side of his face. He states he is having trouble eating secondary to not being able to open his mouth although he is able to open his mouth without much difficulty here and he is tolerating his own secretions. We will obtain a CBC to assess white blood cell count, hemoglobin, platelets. BMP to assess renal function and electrolytes. CRP and ESR will be obtained to assess for inflammatory process. Patient given morphine and Zofran CT brain and facial bones were obtained with IV contrast.CBC shows a leukocytosis of 15.6. Hemoglobin and hematocrit are normal. Platelets are normal. Renal function and electrolytes within normal limits with exception of a sodium of 132. ESR 5. CRP less than 2.9. CT of the brain and facial bones with IV contrast shows a right-sided mucous retention cyst and mild mucosal thickening. Discussed the case with Dr. Hernandez who stated that he can see the patient in office tomorrow. Did ask how he was getting control the patient's pain and he stated that I will take care of it. This was discussed with the patient they are amenable to this. He is feeling better after a dose of morphine. I recommended that he call Dr. Hernandez's office today to see what time they want to make me in tomorrow. Return precautions discussed. Impression: 1. Trigeminal neuralgia Lab Data Attestation: I reviewed the patient's lab results. Labs: Laboratory Results - last 24 hr 08/05/23 12:35 WBC 15.6 H RBC 5.18 Hgb 15.4 Hct 46.4 MCV 89.6 MCH 29.7 MCHC 33.2 RDW Std Deviation 43.7 RDW Coeff of Rom 13.2 Plt Count 275 MPV 10.1 Immature Gran % (Auto) 0.700 Neut % (Auto) 86.6 H Lymph % (Auto) 8.0 L Perkins % (Auto) 4.6 Eos % (Auto) 0.0 Baso % (Auto) 0.1 Absolute Neuts (auto) 13.5 H Absolute Lymphs (auto) 1.25 Nucleated RBC % 0 ESR 5 Sodium 132 L Potassium 4.1 Chloride 101 Carbon Dioxide 26.0 Anion Gap 5 BUN 19 H Creatinine 0.79 Estim Creat Clear Calc 76.57 Est GFR (MDRD) Af Amer 124 Est GFR (MDRD) Non-Af 103 BUN/Creatinine Ratio 24.1 H Glucose 157 H Calcium 8.9 C-React Prot Ext Range < 2.90 Radiography Diagnostic Testing: Clinical Impression(s) from Imaging Studies Brain CT 08/05/23 12:24 IMPRESSION: No acute intracranial process or enhancing intracranial mass identified. Mild chronic involutional and white matter changes. Electronically Signed: Chelsie Bond MD at 13:51 EDT , Facial/Sinus 08/05/23 12:24 IMPRESSION: Mild maxillary sinus mucosal thickening without significant air fluid levels in the paranasal sinuses. No evidence for facial abscess or acute osseous abnormality. Electronically Signed: Chelsie Bond MD at 14:00 EDT , Discharge Plan Triage Chief Complaint: Other, Pain/Inj ED Provider: Kenji Carbone Dx/Rx/DC Orders Instructions: ED Trigeminal Neuralgia Prescriptions: No Action oxcarbazepine 300 mg tablet 300 mg PO BID venlafaxine [Effexor XR] 150 MG capsule,extended release 24hr 150 mg PO DAILY pravastatin 40 MG tablet 40 mg PO QHS albuterol sulfate 90 mcg/actuation HFA aerosol inhaler 2 puff INHALATION PRN PRN (Reason: Dyspnea) Patient Comments: INHALE 2 PUFFS 6 TIMES A DAY NEEDED FOR WHEEZING amoxicillin-pot clavulanate 875-125 mg tablet 1 tab PO BID 7 Days Qty: 14 0RF Primary Care Provider: Arslan Hernandez Chi Referrals: Arslan Hernandez Chi, MD [Primary Care Provider] - Disposition Disposition: Home, Self Care
[2023-08-05 13:17] LABS: Absolute Lymphocyte Count 1.25 X10^3/uL (0.83-4.51); Absolute Neutrophil Count 13.5 X10^3/uL (2.0-7.7); Basophil# 0.02 X10^3/uL; Basophil% 0.1 % (0-1); Hematocrit 46.4 % (40-54); Hemoglobin 15.4 g/dL (13.0-16.5); Lymphocyte # 1.25 X10^3/ul (0.83-4.51); Mean Corp Hgb Conc 33.2 g/dL (32-36); Mean Corpuscular Hgb 29.7 pg (27.0-32.0); Mean Corpuscular Volume 89.6 fL (80-94); Mean Platelet Vol. 10.1 fl (6.2-12.0); Monocyte# 0.72 X10^3/uL; Monocyte% 4.6 % (0-10); NRBC Flagged by Analyzer 0 % (0-5); Neutrophil # 13.47 X10^3/uL (2.7-7.7); Neutrophil % 86.6 % (47-70); Platelet Count 275 K/mm3 (150-450); RBC Distribution Width CV 13.2 % (11.6-14.6); RBC Distribution Width SD 43.7 fl (35.1-43.9); Red Blood Count 5.18 M/mm3 (4.6-6.2); White Blood Count 15.6 K/mm3 (4.4-11.0)
[2023-08-05 13:24] LABS: Erythrocyte Sedimentation Rate 5 mm/hr (0-20)
[2023-08-05 14:55] VITALS: BP 153/78; PULSE 74; RESP 16; O2SAT 98
== END 2023-08-05 14:56 | disposition home or self-care (01) ==
PROVIDERS: Emergency Provider Student in an Organized Health Care Education/Training Program; PCP Family Medicine Geriatric Medicine; Visit Provider Student in an Organized Health Care Education/Training Program
DX: G50.0 Trigeminal neuralgia (principal); J44.9 Chronic obstructive pulmonary disease, unspecified; E78.00 Pure hypercholesterolemia, unspecified; Z79.899 Other long term (current) drug therapy; Z79.52 Long term (current) use of systemic steroids; F17.220 Nicotine dependence, chewing tobacco, uncomplicated
CPT/HCPCS: 70470; 70487; 80048; 85025; 85652; 86140; 96374; 96375; 99283; Q9967; A4216; J2405

== ENCOUNTER → 2023-08-17 | Outpatient (CLI) | payer MEDICARE, SELFPAY ==
[2023-08-17 10:13] LABS: Hematocrit 49.6 % (40-54); Hemoglobin 16.5 g/dL (13.0-16.5); Mean Corp Hgb Conc 33.3 g/dL (32-36); Mean Corpuscular Hgb 30.1 pg (27.0-32.0); Mean Corpuscular Volume 90.5 fL (80-94); Mean Platelet Vol. 10.1 fl (6.2-12.0); Platelet Count 222 K/mm3 (150-450); RBC Distribution Width CV 13.2 % (11.6-14.6); RBC Distribution Width SD 44.3 fl (35.1-43.9); Red Blood Count 5.48 M/mm3 (4.6-6.2); White Blood Count 8.4 K/mm3 (4.4-11.0)
[2023-08-17 10:56] LABS: Vitamin B12 460 pg/mL (211-911)
[2023-08-17 11:34] LABS: ALB/GLOB Ratio 1.1 RATIO (0.9-2.4); AST(SGOT) 15 U/L (15-37); Alanine Aminotransfer ALT/SGPT 28 U/L (16-61); Albumin, Serum 3.9 g/dL (3.2-5.0); Alkaline Phosphatase 143 U/L (45-117); Anion Gap 8 (5-15); BUN 10 mg/dL (7-18); BUN/Creat Ratio 12.6 RATIO (10-20); Calcium,Total 8.9 mg/dL (8.5-10.1); Chloride 103 mmol/L (98-107); Creatinine, Serum 0.79 mg/dL (0.70-1.30); EST Glomerular Filtration Rate 102 mL/min (>60); Est Glom Filt Rate - Afr Amer 123 mL/min (>60); Globulin 3.6 g/dL (2.2-4.2); Glucose 115 mg/dL (74-106); Protein, Total 7.5 g/dL (6.4-8.2); Sodium Level 136 mmol/L (136-145)
[2023-08-20 06:09] LABS: Trileptal-Oxcarbazepine 13 ug/mL (10-35); Vitamin B1, Thiamine 162.6 nmol/L (66.5-200.0)
== END | disposition home or self-care (01) ==
LOC: MTLAB 07:45
PROVIDERS: PCP Family Medicine Geriatric Medicine; Referring Provider Psychiatry & Neurology Neurology; Visit Provider Psychiatry & Neurology Neurology
DX: G50.0 Trigeminal neuralgia (principal); H81.09 Meniere's disease, unspecified ear
CPT/HCPCS: 36415; 80053; 82542; 82607; 82746; 84425; 85027

== ENCOUNTER → 2023-09-03 | Outpatient (CLI) | payer MEDICARE, SELFPAY ==
--- NOTE | 2023-09-03 07:09 | MRI_ITS ---
STUDY: MRI BRAIN WITH AND WITHOUT CONTRAST (ATTENTION INTERNAL AUDITORY CANALS - I.A.C.''s) REASON FOR EXAM: Male, 72 years old. right trigeminal neuralgia; Meniere''s disease -- with attention to posterior fossa/IACs TECHNIQUE: Standardized multiplanar fat and water weighted pulse sequences were obtained. IV 23 cc clariscan was administered for the contrast portion of the examination. COMPARISON: CT of the brain August 05, 2023 FINDINGS: Normal bilateral temporal bones. Normal bilateral internal auditory canals. There is no demonstrated intracanalicular or cisternal vestibular schwannoma (acoustic neuroma). There is no enhancement of the bilateral VIIth or VIIIth cranial nerves. Normal bilateral cochlea, vestibules and semicircular canals. Mild atrophy and periventricular white matter ischemic change without evidence for acute infarct . Normal bilateral basal ganglia. Normal thalami. Normal flow voids within the major intracranial circulation suggesting patency by spin echo criteria. Normal venous enhancement. There is no enhancing intra-axial or extra-axial abnormality. There is no extra-axial fluid accumulation. Normal sella turcica, pituitary gland, infundibular stalk, optic chiasm and hypothalamus. Normal tectal plate and pineal gland. Normal midbrain, naliin and medulla. [Mild chronic ischemic changes in the right cerebellar hemisphere. Normal basal cisterns. No demonstrated orbital abnormality, within the constraints of a routine brain study. Mild mucosal thickening of the right maxillary and bilateral ethmoid air cells. Normal calvarium and skull base. Normal visualized soft tissue structures. Normal visualized upper cervical spine. MRI/Brain W/WO Contrast IMPRESSION: Normal unenhanced and enhanced MRI of the bilateral internal auditory canals (I.A.C''s). Mild atrophy and periventricular white matter ischemic changes without evidence for acute infarct Electronically Signed: Bola Matamoros MD at 19:01 EDT ,
== END | disposition home or self-care (01) ==
PROVIDERS: PCP Family Medicine Geriatric Medicine; Referring Provider Psychiatry & Neurology Neurology; Visit Provider Psychiatry & Neurology Neurology
DX: G50.9 Disorder of trigeminal nerve, unspecified (principal); H81.09 Meniere's disease, unspecified ear
CPT/HCPCS: 70553; A9575

== ENCOUNTER → 2023-09-17 | Outpatient (CLI) | payer MEDICARE, SELFPAY ==
--- NOTE | 2023-09-17 14:20 | RAD_ITS ---
STUDY: X-RAY - LEFT ELBOW REASON FOR EXAM: Male, 72 years old. Pain. TECHNIQUE: 3 view(s) of the elbow. COMPARISON: None. FINDINGS: Osteopenia. Normal visualized humerus, radius and ulna. 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 Normal soft tissues. RAD/Elbow min 3 Views IMPRESSION: Osteopenia with moderate osteoarthritic changes as described. Electronically Signed: Ryne Munson MD at 15:11 EST ,
== END | disposition home or self-care (01) ==
LOC: RAD 14:11
PROVIDERS: PCP Family Medicine Geriatric Medicine; Referring Provider Family Medicine Geriatric Medicine; Visit Provider Family Medicine Geriatric Medicine
DX: M19.022 Primary osteoarthritis, left elbow (principal)
CPT/HCPCS: 73080

== ENCOUNTER → 2023-10-27 | Outpatient (CLI) | payer MEDICARE, SELFPAY | END | disposition home or self-care (01) | PROVIDERS: PCP Family Medicine Geriatric Medicine; Referring Provider Family Medicine Geriatric Medicine; Visit Provider Family Medicine Geriatric Medicine | DX: R68.83 Chills (without fever) (principal) | CPT/HCPCS: 87635; 87804; 87807; C9803 ==

== ENCOUNTER → 2023-12-25 | Outpatient (CLI) | payer MEDICARE, SELFPAY ==
--- OUTSIDE RECORDS SUMMARY | 2023-12-25 08:08 | XMS RPT_ITS | CCD ---
Author Name Unknown Address [address] [place] [address] Organization [facility] Care Team Providers Care Shell Coremaker Name Role Phone Clarita Bowles Unavailable Unavailable Clarita Bowles Unavailable Unavailable JAYLON VALENZUELA Admitting Unavailable JAYLON VALENZUELA Attending Unavailable CAMELIA KIM (PA) Referring Unavailable CAMELIA KIM (BETTY) Attending Unavailable ADRIAN VASQUEZ Referring Unavailable [facility], [facility] [phone] Medications Current Medications Medication Drug Class(es) Dates Sig (Normalized) Sig (Original) acetaminophen 325 mg / oxyCODONE hydrochloride 5 mg oral tablet (1 source) Opioid Agonist Start: 08-02-2021 End: 08-09-2021 take 1 tablet by mouth every twelve hours as needed for pain oxyCODONE-acetamin ophen (PERCOCET) 5-325 MG per tablet Indications: Ganglion cyst of joint of finger of right hand , S/P excision of ganglion cyst Take 1 tablet by mouth every 12 hours as needed for Pain for up to 7 days. 14 tablet 0 08/02/2021 08/09/2021 Active pravastatin sodium 40 mg oral tablet (2 sources) HMG-CoA Reductase Inhibitor Start: 04-05-2021 take 1 tablet by mouth once daily at bedtime pravastatin (PRAVACHOL) 40 MG tablet TAKE 1 TABLET ORALLY ONCE PER DAY FOR 90 DAYS TAKE AT BEDTIME 0 04/05/2021 Active Completed/Discontinued Medications Medication Drug Class(es) Dates Sig (Normalized) Sig (Original) ALPRAZolam 0.5 mg oral tablet (1 source) Benzodiazepine Start: 07-22-2017 XANAX 0.5 MG TABS as needed ALPRAZOLAM [id number] Kanu Winslow EPINEPHrine 0.01 mg/ml / lidocaine hydrochloride 10 mg/ml injectable solution (1 source) Antiarrhythmic, alpha-Adrenergic Agonist, beta-Adrenergic Agonist, Catecholamine, Amide Local Anesthetic Start: 08-02-2021 End: 08-02-2021 lidocaine-EPINEPH rine 1 %-1:039396 injection 8 mL Problems Active Problems Problem Classification Problem Date Documented Date Episodic/Chronic Osteoarthritis (1 source) Osteoarthritis of knee; Translations: [Bilateral primary osteoarthritis of knee] Onset: 07-22-2017 08-03-2017 Chronic Other connective tissue disease (1 source) Ganglion cyst of right hand; Translations: [Ganglion, right hand] Episodic Residual codes; unclassified (1 source) Other specified personal risk factors, not elsewhere classified; Translations: [Other specified personal risk factors, not elsewhere classified] Onset: 11-19-2018 Episodic Residual codes; unclassified (1 source) Past history of procedure; Translations: [Other specified postprocedural states] Episodic Unclassified (1 source) No current problems or disability 07-22-2017 Past or Other Problems Problem Classification Problem Date Documented Da te Episodic/Chronic Other non-traumatic joint disorders (1 source) Knee pain; Translations: [Pain in right knee] Onset: 07-22-2017 07-22-2017 Episodic Results Test Name Value Interpretation Reference Range Facil ity Vital Signs Date Time Vital Sign Value Performing Clinician Facility 08-02-2021 11:37-0400 Body temperature 98.29 [degF] Trey Culp MD Work Phone: [facility] Work Phone: 08-02-2021 11:37-0400 Diastolic blood pressure 87 mm[Hg] Trey Culp MD Work Phone: [facility] Work Phone: 08-02-2021 11:37-0400 Heart rate 69 /min Trey Culp MD Work Phone: [facility] Work Phone: 08-02-2021 11:37-0400 Respiratory rate 19 /min Trey Culp MD Work Phone: [facility] Work Phone: 08-02-2021 11:37-0400 SaO2% (BldA) [Mass fraction] 96 % Trey Culp MD Work Phone: [facility] Work Phone: 08-02-2021 11:37-0400 Systolic blood pressure 153 mm[Hg] [facility] Work Phone: 08-02-2021 09:45-0400 Body mass index (BMI) [Ratio] 31.66 kg/m2 Trey Culp MD [facility] Work Phone: 08-02-2021 09:45-0400 Body weight 108.86 kg Trey Culp MD Work Phone: [facility] Work Phone: 07-22-2017 13:54-0400 BMI (Body Mass Index) 33.11 kg/m2 [facility] Work Phone: 07-22-2017 13:54-0400 Height 185.42 cm [facility] Work Phone: 07-22-2017 13:54-0400 Weight 113.85 kg [facility] Work Phone: Encounters Encounter Date Encounter Type Care Provider Facility Start: 08-02-2021 End: 08-02-2021 Subsequent hospital visit by physician Trey Culp MD Work Phone: [facility] Surgery Procedures Date Procedure Procedure Detail Performing Clinician Start: 08-02-2021 OPERATIVE REPORT 3m Sca nning Plan of Treatment Date Care Activity Detail Author Start: 08-12-2021 End: 08-12-2021 Patient encounter procedure 08/12/2021 Office Visit Orthopedic Surgery Lilli Govea PA [address] [facility] [address] [place] [address] [phone] [facility] Alexia Start: 07-10-2021 Influenza vaccination Flu vaccine (#1) [facility] Work Phone: Start: 07-22-2017 End: 07-22-2017 Appointment Appointment [facility] Work Phone: Start: 07-22-2017 End: 07-22-2017 X-ray exam, knee, 4 or more X-Ray, Knee [facility] Work Phone: Start: 2016 Pneumococcal 65+ years Vaccine (1 of 1 - PPSV23) Pneumococcal 65+ years Vaccine (1 of 1 - PPSV23) [facility] Work Phone: Start: 09-10-2011 DTaP/Tdap/Td vaccine (1 - Tdap) DTaP/Tdap/Td vaccine (1 - Tdap) [facility] Work Phone: Start: 1996 Screening for malignant neoplasm of colon Colon cancer screen colonoscopy [facility] Work Phone: Start: 1991 Diabetes screen Diabetes screen [facility] Work Phone: Start: 1961 Lipid panel Lipid screen [facility] Work Phone: Start: 1951 Hepatitis C screening Hepatitis C screen [facility] Work Phone: Oxygen therapy [[facility] Data Set] Initiate Oxygen Therapy Protocol Respiratory Care Routine Daily until discontinued starting 08/02/2021 [facility] Work Phone: Payers Date Payer Category Payer Private Health Insurance AETJACINTO MIDDLETON [id number] 2021-Present [phone] [address] [place] [address] [id number] Social History Date Type Detail Facility Start: 08-02-2021 Tobacco smoking stat [facility] Never smoker [facility] Work Phone: Start: 08-02-2021 Tobacco use and exposure Current user [facility] History of tobacco use Snuff User [facility] Start: 08-02-2021 Alcohol intake Ex-drinker (finding) [facility] Work Phone: Start: 1950 Sex Assigned At Not on file [facility] Work Phone: Exposure to SARS-CoV -2 (event) Not sure [facility] Evaluation note Note Date & Type Note Facility documented in this encounter [facility] Work Phone: Hospital Discharge instructions Instructions Note Date & Type Note Facility Hospital Discharge instructions Lilli Govea PA - 08/02/2021 Images from the original note were not included. Keep dressing on, clean, and dry for 5 days following surgery. Then okay to remove the dressing. It is okay to shower but do not soak the incision. Please keep a dry dressing or band aid with small amount of antibiotic ointment over the incision until follow up appointment in 1-2 weeks. You received a local injection with lidocaine and epinephrine today. It is normal for your finger tip to look pale or white for up to 10 hours after surgery but if this persists past the 10 hours please call the office immediately. Elevate and Ice for pain control. Encourage ROM of index finger, long finger, ring finger, little finger, thumb in dressing with goal of touching fingertips to palm by initial post op appointment. Non weight bearing in operative extremity. Finger: Exercises Introduction Here are some examples of exercises for you to try. The exercises may be suggested for a condition or for rehabilitation. Start each exercise slowly. Ease off the exercises if you start to have pain. You will be told when to start these exercises and which ones will work best for you. How to do the exercises Tendon glides 1. In this exercise, the steps follow one another to make a continuous movement. 2. With one hand, point your fingers and thumb straight up. Your wrist should be relaxed, following the line of your fingers and thumb. 3. Curl your fingers so that the top two joints in them are bent, and your fingers wrap down. Your fingertips should touch or be near the base of your fingers. Your fingers will look like a hook. 4. Make a fist by bending your knuckles. Your thumb can gently rest against your index (pointing) finger. 5. Unwind your fingers slightly so that your fingertips can touch the base of your palm. Your thumb can rest against your index finger. Hold that position for about 6 seconds. 6. Move back to your starting position, with your fingers and thumb pointing up. 7. Repeat the series of motions 8 to 12 times. 8. Switch hands, and repeat steps 1 through 6. Thumb flexion/extension 1. Place your forearm and hand on a table with your thumb pointing up. 2. Bend your thumb downward and across your palm so that your thumb touches the base of your little finger. Hold that position for about 6 seconds. Then straighten your thumb. 3. Repeat 8 to 12 times. 4. Switch hands, and repeat steps 1 through 3. Thumb abduction/adduction 1. With one hand, point your fingers and thumb straight up. Your wrist should be relaxed, following the line of your fingers and thumb. 2. Pull your thumb away from your palm as far as you can. Hold that position for about 6 seconds. Then slowly move your thumb back to the starting position, with your thumb resting against your index (pointing) finger. 3. Repeat 8 to 12 times. 4. Switch hands, and repeat steps 1 through 3. Finger opposition 1. With one hand, point your fingers and thumb straight up. Your wrist should be relaxed, following the line of your fingers and thumb. 2. Touch your thumb to each finger, one finger at a time. This will look like an okay sign, but try to keep your other fingers straight and pointing upward as much as you can. 3. Repeat 8 to 12 times. 4. Switch hands, and repeat steps 1 through 3. Follow-up care is a starks part of your treatment and safety. Be sure to make and go to all appointments, and call your doctor if you are having problems. It's also a good idea to know your test results and keep a list of the medicines you take. Where can you learn more? Go to [email or web address] and sign in to your Seesearch account. Enter X265 in the Search Health Information box to learn more about Finger: Exercises. If you do not have an account, please click on the Sign Up Now link. Current as of: May 09, 2021 Content Version: 13.0 [employer]. Care instructions adapted under license by [employer]. If you have questions about a medical condition or this instruction, always ask your healthcare professional. [employer] disclaims any warranty or liability for your use of this information. documented in this encounter JANNETTELOS Phone: Summary Purpose Family History No Family History Records FoundNo Family History Records FoundNo Family History Records Found Advance Directives No Advanced Directives Records FoundLatest Code Status on File Code Status Date Activated Date Inactivated Comments Full Code 08/02/2021 9:33 AM Additional Source Comments (unrecognized sect ion and content) No Status Records FoundNo Status Records FoundNo Status Records Found INFORMATION SOURCE (unrecogn ized section and content) DATE CREATED AUTHOR AUTHOR'S ORGANIZ ATION 11/18/2019 [facility] ([place]) DATE CREATED AUTHOR AUTHOR'S ORGANIZ ATION 08/31/2021 [facility] General Blood Sys tem Ordered Prescriptions (unrec ognized section and content) Scheduled Active and Recently Administ ered Medications (unrecognized section and content) FOR RECORDS PERTAINING TO PATIENTS WHO ARE OR HAVE BEEN ENROLLED IN A CHEMICAL DEPENDENCY/SUBSTANCEABUSE PROGRAM, SOME INFORMATION MAY BE OMITTED. This clinical summary was aggregated from multiple sources. Caution should be exercised in using it in the provision of clinical care. This summary normalizes information from multiple sources, and as a consequence, information in this document may materially change the coding, format and clinical context of patient data. In addition, data may be omitted in some cases. CLINICAL DECISIONS SHOULD BE BASED ON THE PRIMARY CLINICAL RECORDS. [employer] [facility]. provides no warranty or guarantee of the accuracy or completeness of information in this document.
[2023-12-25 10:08] LABS: Hematocrit 45.3 % (40-54); Hemoglobin 15.3 g/dL (13.0-16.5); Mean Corp Hgb Conc 33.8 g/dL (32-36); Mean Corpuscular Hgb 30.8 pg (27.0-32.0); Mean Corpuscular Volume 91.1 fL (80-94); Mean Platelet Vol. 10.7 fl (6.2-12.0); Platelet Count 190 K/mm3 (150-450); RBC Distribution Width CV 13.1 % (11.6-14.6); RBC Distribution Width SD 43.2 fl (35.1-43.9); Red Blood Count 4.97 M/mm3 (4.6-6.2); White Blood Count 5.9 K/mm3 (4.4-11.0)
[2023-12-25 10:39] LABS: ALB/GLOB Ratio 1.1 RATIO (0.9-2.4); AST(SGOT) 17 U/L (15-37); Alanine Aminotransfer ALT/SGPT 24 U/L (16-61); Albumin, Serum 3.7 g/dL (3.2-5.0); Alkaline Phosphatase 148 U/L (45-117); Anion Gap 6 (5-15); BUN 12 mg/dL (7-18); BUN/Creat Ratio 15.5 RATIO (10-20); Calcium,Total 8.9 mg/dL (8.5-10.1); Chloride 104 mmol/L (98-107); Creatinine, Serum 0.78 mg/dL (0.70-1.30); EST Glomerular Filtration Rate 105 mL/min (>60); Est Glom Filt Rate - Afr Amer 127 mL/min (>60); Globulin 3.4 g/dL (2.2-4.2); Glucose 114 mg/dL (74-106); Potassium 4.2 mmol/L (3.5-5.1); Protein, Total 7.1 g/dL (6.4-8.2); Sodium Level 135 mmol/L (136-145)
[2023-12-25 11:01] LABS: Phenytoin (Dilantin) Level 3.5 mL (10.0-20.0)
[2023-12-28 20:07] LABS: Trileptal-Oxcarbazepine 19 ug/mL (10-35)
== END | disposition home or self-care (01) ==
LOC: MTLAB 07:49
PROVIDERS: PCP Family Medicine Geriatric Medicine; Referring Provider Psychiatry & Neurology Neurology; Visit Provider Psychiatry & Neurology Neurology
DX: G50.0 Trigeminal neuralgia (principal)
CPT/HCPCS: 36415; 80053; 80185; 82542; 85027

== ENCOUNTER → 2024-01-20 | Outpatient (CLI) | payer MEDICARE, SELFPAY ==
[2024-01-20 11:03] LABS: Absolute Neutrophil Count 6.2 X10^3/uL (2.0-7.7); Basophil# 0.03 X10^3/uL; Basophil% 0.4 % (0-1); Eosinophil# 0.18 X10^3/uL; Eosinophils% 2.3 % (0-5); Hematocrit 46.4 % (40-54); Hemoglobin 15.6 g/dL (13.0-16.5); Lymphocyte % 12.7 % (19-41); Mean Corp Hgb Conc 33.6 g/dL (32-36); Mean Corpuscular Volume 92.2 fL (80-94); Mean Platelet Vol. 9.2 fl (6.2-12.0); Monocyte# 0.44 X10^3/uL; Monocyte% 5.6 % (0-10); NRBC Flagged by Analyzer 0 % (0-5); Neutrophil # 6.19 X10^3/uL (2.7-7.7); Neutrophil % 78.2 % (47-70); Platelet Count 249 K/mm3 (150-450); Red Blood Count 5.03 M/mm3 (4.6-6.2); White Blood Count 7.9 K/mm3 (4.4-11.0)
[2024-01-20 11:27] LABS: AST(SGOT) 15 U/L (15-37); Alanine Aminotransfer ALT/SGPT 24 U/L (16-61); Albumin, Serum 3.6 g/dL (3.2-5.0); Alkaline Phosphatase 143 U/L (45-117); Anion Gap 10 (5-15); BUN 10 mg/dL (7-18); BUN/Creat Ratio 11.4 RATIO (10-20); Calcium,Total 8.6 mg/dL (8.5-10.1); Chloride 99 mmol/L (98-107); Creatinine, Serum 0.88 mg/dL (0.70-1.30); EST Glomerular Filtration Rate 91 mL/min (>60); Est Glom Filt Rate - Afr Amer 110 mL/min (>60); Globulin 3.5 g/dL (2.2-4.2); Glucose 150 mg/dL (74-106); Potassium 4.1 mmol/L (3.5-5.1); Protein, Total 7.1 g/dL (6.4-8.2); Sodium Level 136 mmol/L (136-145)
--- OUTSIDE RECORDS SUMMARY | 2024-01-20 12:12 | XMS RPT_ITS | CCD ---
Author Name Unknown Address [address] [place] [address] Organization [facility] Care Team Providers Care High Man Name Role Phone Clarita Bowles Unavailable Unavailable Clarita Bowles Unavailable Unavailable JAYLON VALENZUELA Admitting Unavailable JAYLON VALENZUELA Attending Unavailable CAMELIA KIM (PA) Referring Unavailable CAMELIA KIM (BETTY) Attending Unavailable ADRIAN VASQUEZ Referring Unavailable David [facility]AMBERT, [facility] [phone] Medications Current Medications Medication Drug Class(es) Dates [...] XANAX 0.5 MG TABS as needed ALPRAZOLAM [id number] Kanu Winslow EPINEPHrine 0.01 mg/ml / lidocaine hydrochloride 10 mg/ml injectable solution (1 source) Antiarrhythmic, alpha-Adrenergic Agonist, beta-Adrenergic Agonist, Catecholamine, Amide Local Anesthetic Start: 08-02-2021 End: 08-02-2021 lidocaine-EPINEPH rine 1 %-1:425757 injection 8 mL Problems Active Problems Problem [...] 98.29 [degF] Trey Culp MD Work Phone: [facility] Work Phone: 08-02-2021 11:37-0400 Diastolic blood pressure 87 mm[Hg] Trey Culp MD Work Phone: [facility] Work Phone: 08-02-2021 11:37-0400 Heart rate 69 /min Trey Culp MD Work Phone: [facility] Work Phone: 08-02-2021 11:37-0400 Respiratory rate 19 /min Trey Culp MD Work Phone: [facility] Work Phone: 08-02-2021 11:37-0400 SaO2% (BldA) [Mass fraction] 96 % Trey Culp MD Work Phone: [facility] Work Phone: 08-02-2021 11:37-0400 Systolic blood pressure 153 mm[Hg] Trey Culp MD Work Phone: [facility] Work Phone: 08-02-2021 09:45-0400 Body mass index (BMI) [Ratio] 31.66 kg/m2 Trey Culp MD Work Phone: [facility] Work Phone: 08-02-2021 09:45-0400 Body weight 108.86 kg Trey Culp MD Work Phone: [facility] Work Phone: 07-22-2017 13:54-0400 BMI (Body Mass Index) 33.11 kg/m2 [facility] Work Phone: 07-22-2017 13:54-0400 Height 185.42 cm [facility] Work Phone: 07-22-2017 13:54-0400 Weight 113.85 kg [facility] Work Phone: Encounters Encounter Date Encounter Type Care Provider Facility Start: 08-02-2021 End: 08-02-2021 Subsequent hospital visit by physician Trey Culp MD Work Phone: [facility] Surgery Procedures Date Procedure Procedure Detail Performing Clinician Start: 08-02-2021 OPERATIVE REPORT 3m Sca nning Plan of Treatment Date Care Activity Detail Author Start: 08-12-2021 End: 08-12-2021 Patient encounter procedure 08/12/2021 Office Visit Orthopedic Surgery Lilli Govea PA [address] [facility] [address] [place] [address] [phone] [facility] Medicine Alexia Start: 07-10-2021 Influenza vaccination Flu vaccine (#1) [facility] Work Phone: Start: 07-22-2017 End: 07-22-2017 Appointment Appointment [facility] Work Phone: Start: 07-22-2017 End: 07-22-2017 X-ray exam, knee, 4 or more X-Ray, Knee [facility] Work Phone: Start: [...] C screen [facility] Work Phone: Oxygen therapy [[facility] Data Set] Initiate Oxygen Therapy Protocol Respiratory Care Routine Daily until discontinued starting 08/02/2021 [facility] Work Phone: Payers Date Payer Category Payer Private Health Insurance AETJACINTO MIDDLETON [id number] 2021-Present [phone] [address] [place] [address] [id number] Social History Date Type Detail Facility Start: 08-02-2021 Tobacco smoking stat [facility] Never smoker [facility] Work Phone: Start: 08-02-2021 Tobacco use and exposure Current user [facility] History of tobacco use Snuff User [facility] Start: 08-02-2021 Alcohol intake Ex-drinker (finding) [facility] Work Phone: Start: 1950 Sex Assigned At Not on file S [facility] Work Phone: Exposure to SARS-CoV -2 (event) Not sure [facility] Evaluation note Note Date & Type Note Facility documented in this encounter [facility] Work Phone: Hospital Discharge instructions Instructions Note [...] Where can you learn more? Go to [email or web address] and sign in to your Pets are family too account. Enter X265 in the Search Health Information box to learn more about Finger: Exercises. If you do not have an account, please click on the Sign Up Now link. Current as of: May 09, 2021 Content Version: 13.0 [employer]. Care instructions adapted under license by [employer]. If you have questions about a medical condition or this instruction, always ask your healthcare professional. [employer] disclaims any warranty or liability for your use of this information. documented in this encounter [employer]PG [employer] Phone: Summary Purpose Family History No Family [...] DATE CREATED AUTHOR AUTHOR'S ORGANIZ ATION 11/18/2019 [facility] ([place]) DATE CREATED AUTHOR AUTHOR'S ORGANIZ ATION 08/31/2021 [facility] [employer] Sys tem Ordered Prescriptions (unrec ognized section [...] BE BASED ON THE PRIMARY CLINICAL RECORDS. [employer] [facility]. provides no warranty or guarantee of the accuracy or completeness of information in this document.
[2024-01-20 15:41] LABS: Hemoglobin A1c 5.8 % (3.8-5.6)
== END | disposition home or self-care (01) ==
LOC: POLAB3 10:04
PROVIDERS: PCP Family Medicine Geriatric Medicine; Visit Provider Family Medicine Geriatric Medicine
DX: R53.83 Other fatigue (principal); E11.65 Type 2 diabetes mellitus with hyperglycemia; E55.9 Vitamin D deficiency, unspecified
CPT/HCPCS: 36415; 80053; 82306; 83036; 84443; 85025

== ENCOUNTER → 2024-07-20 | Outpatient (CLI) | payer MEDICARE, SELFPAY ==
[2024-07-20 11:25] LABS: Absolute Lymphocyte Count 1.46 X10^3/uL (0.83-4.51); Absolute Neutrophil Count 4.3 X10^3/uL (2.0-7.7); Basophil# 0.06 X10^3/uL; Basophil% 0.9 % (0-1); Eosinophil# 0.48 X10^3/uL; Hematocrit 46.4 % (40-54); Hemoglobin 15.4 g/dL (13.0-16.5); Lymphocyte # 1.46 X10^3/ul (0.83-4.51); Lymphocyte % 21.3 % (19-41); Mean Corp Hgb Conc 33.2 g/dL (32-36); Mean Corpuscular Volume 90.3 fL (80-94); Mean Platelet Vol. 10.1 fl (6.2-12.0); Monocyte# 0.52 X10^3/uL; Monocyte% 7.6 % (0-10); NRBC Flagged by Analyzer 0 % (0-5); Neutrophil # 4.31 X10^3/uL (2.7-7.7); Neutrophil % 62.6 % (47-70); Platelet Count 237 K/mm3 (150-450); RBC Distribution Width CV 13.1 % (11.6-14.6); RBC Distribution Width SD 43.2 fl (35.1-43.9); Red Blood Count 5.14 M/mm3 (4.6-6.2); White Blood Count 6.9 K/mm3 (4.4-11.0)
[2024-07-20 11:56] LABS: ALB/GLOB Ratio 1.1 RATIO (0.9-2.4); AST(SGOT) 15 U/L (15-37); Alanine Aminotransfer ALT/SGPT 24 U/L (16-61); Albumin, Serum 3.7 g/dL (3.2-5.0); Alkaline Phosphatase 174 U/L (45-117); Anion Gap 5 (5-15); BUN 12 mg/dL (7-18); BUN/Creat Ratio 15.4 RATIO (10-20); Chloride 103 mmol/L (98-107); Creatinine, Serum 0.78 mg/dL (0.70-1.30); EST Glomerular Filtration Rate 104 mL/min (>60); Est Glom Filt Rate - Afr Amer 125 mL/min (>60); Globulin 3.5 g/dL (2.2-4.2); Glucose 101 mg/dL (74-106); Potassium 4.2 mmol/L (3.5-5.1); Protein, Total 7.2 g/dL (6.4-8.2); Sodium Level 137 mmol/L (136-145)
[2024-07-20 12:05] LABS: Vitamin D,25 Hydroxy 65.8 ng/mL
[2024-07-26 15:08] LABS: Phenytoin (Dilantin) Level 4.7 ug/mL (10.0-20.0); Trileptal-Oxcarbazepine 26 ug/mL (10-35)
== END | disposition home or self-care (01) ==
LOC: POLAB3 10:00
PROVIDERS: Psychiatry & Neurology Neurology; PCP Family Medicine Geriatric Medicine; Visit Provider Family Medicine Geriatric Medicine
DX: R53.83 Other fatigue (principal); E55.9 Vitamin D deficiency, unspecified
CPT/HCPCS: 36415; 80053; 82306; 82542; 84443; 85025

== ENCOUNTER → 2025-01-23 | Outpatient (CLI) | payer MEDICARE, SELFPAY ==
[2025-01-23 10:57] LABS: Absolute Lymphocyte Count 1.44 X10^3/uL (0.83-4.51); Absolute Neutrophil Count 4.5 X10^3/uL (2.0-7.7); Basophil# 0.02 X10^3/uL; Basophil% 0.3 % (0-1); Eosinophil# 0.42 X10^3/uL; Eosinophils% 6.1 % (0-5); Hematocrit 46.3 % (40-54); Hemoglobin 15.9 g/dL (13.0-16.5); Lymphocyte # 1.44 X10^3/ul (0.83-4.51); Lymphocyte % 20.7 % (19-41); Mean Corp Hgb Conc 34.3 g/dL (32-36); Mean Corpuscular Hgb 31.1 pg (27.0-32.0); Mean Corpuscular Volume 90.4 fL (80-94); Mean Platelet Vol. 9.7 fl (6.2-12.0); Monocyte# 0.55 X10^3/uL; Monocyte% 7.9 % (0-10); NRBC Flagged by Analyzer 0 % (0-5); Neutrophil % 64.9 % (47-70); Platelet Count 244 K/mm3 (150-450); RBC Distribution Width CV 13.1 % (11.6-14.6); RBC Distribution Width SD 42.7 fl (35.1-43.9); Red Blood Count 5.12 M/mm3 (4.6-6.2); White Blood Count 6.9 K/mm3 (4.4-11.0)
[2025-01-23 14:39] LABS: Vitamin D,25 Hydroxy 58.5 ng/mL (30-100)
[2025-01-23 14:42] LABS: ALB/GLOB Ratio 1.6 RATIO (0.9-2.4); AST(SGOT) 20 U/L (<=37); Alanine Aminotransfer ALT/SGPT 16 U/L (<=46); Albumin, Serum 4.4 g/dL (3.4-4.8); Alkaline Phosphatase 157 U/L (40-129); Anion Gap 14 (5-15); BUN 11 mg/dL (4-19); BUN/Creat Ratio 13.3 RATIO (10-20); Calcium,Total 9.1 mg/dL (7.6-11.0); Carbon Dioxide 24.4 mmol/L (21.0-32.0); Chloride 101 mmol/L (98-108); Creatinine, Serum 0.82 mg/dL (0.70-1.20); EST Glomerular Filtration Rate 93 (>60); Globulin 2.7 g/dL (2.2-4.2); Glucose 90 mg/dL (70-99); Protein, Total 7.1 g/dL (5.9-8.4); Sodium Level 139 mmol/L (133-145); Total Bilirubin 0.18 mg/dL (0.00-1.30)
== END | disposition home or self-care (01) ==
LOC: POLAB3 10:33
PROVIDERS: PCP Family Medicine Geriatric Medicine; Visit Provider Family Medicine Geriatric Medicine
DX: R53.83 Other fatigue (principal); E55.9 Vitamin D deficiency, unspecified
CPT/HCPCS: 36415; 80053; 82306; 84443; 85025

== ENCOUNTER → 2025-01-27 | Outpatient (CLI) | payer MEDICARE, SELFPAY ==
[2025-02-03 00:07] LABS: Trileptal-Oxcarbazepine 13 ug/mL (10-35)
== END | disposition home or self-care (01) ==
LOC: MTLAB 09:28
PROVIDERS: PCP Family Medicine Geriatric Medicine; Referring Provider Psychiatry & Neurology Neurology; Visit Provider Psychiatry & Neurology Neurology
DX: G50.0 Trigeminal neuralgia (principal)
CPT/HCPCS: 36415; 82542

== ENCOUNTER → 2025-07-25 | Outpatient (CLI) | payer MEDICARE, SELFPAY ==
[2025-07-25 10:05] LABS: Hematocrit 46.1 % (40-54); Hemoglobin 15.7 g/dL (13.0-16.5); Immature Granulocytes Count 0.020 X10^3/uL (0.0-0.0); Mean Corp Hgb Conc 34.1 g/dL (32-36); Mean Corpuscular Volume 89.2 fL (80-94); Mean Platelet Vol. 9.4 fl (6.2-12.0); NRBC Flagged by Analyzer 0 % (0-5); Platelet Count 227 K/mm3 (150-450); RBC Distribution Width CV 13.2 % (11.6-14.6); RBC Distribution Width SD 43.1 fl (35.1-43.9); Red Blood Count 5.17 M/mm3 (4.6-6.2); White Blood Count 6.2 K/mm3 (4.4-11.0)
[2025-07-25 11:15] LABS: AST(SGOT) 20 U/L (<=37); Alanine Aminotransfer ALT/SGPT 14 U/L (<=46); Albumin, Serum 4.4 g/dL (3.4-4.8); Alkaline Phosphatase 146 U/L (40-129); Anion Gap 12 (5-15); BUN 13 mg/dL (4-19); BUN/Creat Ratio 16.5 RATIO (10-20); Calcium,Total 9.3 mg/dL (7.6-11.0); Carbon Dioxide 23.9 mmol/L (21.0-32.0); Chloride 102 mmol/L (98-108); Globulin 2.7 g/dL (2.2-4.2); Glucose 94 mg/dL (70-99); Potassium 4.3 mmol/L (3.3-5.1); Vitamin D,25 Hydroxy 62.9 ng/mL (30-100)
[2025-07-25 17:56] LABS: Xtra Tube Kwok EXTRA TUBE
== END | disposition home or self-care (01) ==
LOC: POLAB3 09:54
PROVIDERS: PCP Family Medicine Geriatric Medicine; Visit Provider Family Medicine Geriatric Medicine
DX: E55.9 Vitamin D deficiency, unspecified (principal); R53.83 Other fatigue
CPT/HCPCS: 36415; 80053; 82306; 84443; 85025

== ENCOUNTER 2025-08-18 13:21 | Emergency (ER) | payer MEDICARE, SELFPAY ==
[2025-08-18 13:23] VITALS: BP 147/97; PULSE 74; RESP 18; TEMP 36.6; O2SAT 96; BMI 32.7
== END 2025-08-18 14:06 | disposition left against medical advice (07) ==
LOC: ED 14:14
PROVIDERS: PCP Family Medicine Geriatric Medicine
DX: Z53.21 Procedure and treatment not carried out due to patient leaving prior to being seen by health care provider (principal)

== ENCOUNTER → 2025-08-24 | Outpatient (CLI) | payer MEDICARE, SELFPAY ==
[2025-08-24 17:55] LABS: Hematocrit 44.6 % (40-54); Hemoglobin 15.5 g/dL (13.0-16.5); Mean Corp Hgb Conc 34.8 g/dL (32-36); Mean Corpuscular Volume 86.8 fL (80-94); Mean Platelet Vol. 10.2 fl (6.2-12.0); Platelet Count 251 K/mm3 (150-450); RBC Distribution Width CV 12.9 % (11.6-14.6); RBC Distribution Width SD 40.9 fl (35.1-43.9); Red Blood Count 5.14 M/mm3 (4.6-6.2); White Blood Count 7.8 K/mm3 (4.4-11.0)
[2025-08-24 18:27] LABS: AST(SGOT) 17 U/L (<=37); Alanine Aminotransfer ALT/SGPT 10 U/L (<=46); Albumin, Serum 4.3 g/dL (3.4-4.8); Alkaline Phosphatase 153 U/L (40-129); Anion Gap 11 (5-15); BUN 13 mg/dL (4-19); BUN/Creat Ratio 18.7 RATIO (10-20); Calcium,Total 9.2 mg/dL (7.6-11.0); Carbon Dioxide 24.8 mmol/L (21.0-32.0); Chloride 99 mmol/L (98-108); Globulin 2.6 g/dL (2.2-4.2); Glucose 99 mg/dL (70-99); Potassium 4.0 mmol/L (3.3-5.1)
[2025-08-31 07:08] LABS: Trileptal-Oxcarbazepine 23 ug/mL (10-35)
== END | disposition home or self-care (01) ==
LOC: MTLAB 14:57
PROVIDERS: PCP Family Medicine Geriatric Medicine; Referring Provider Psychiatry & Neurology Neurology; Visit Provider Psychiatry & Neurology Neurology
DX: G50.0 Trigeminal neuralgia (principal)
CPT/HCPCS: 36415; 80053; 82542; 85027